=== PATIENT | male | born 1945 | race Caucasian/White ===

== ENCOUNTER 2016-11-07 10:36 | Day surgery (SDC) | payer MEDICARE, OTHER ==
--- NOTE | 2016-11-06 10:29 | MH ---
cc: LUPE MELO M.D. DATE OF ADMISSION: 11/07/2016 ADMITTING DIAGNOSIS: The patient is a 71-year-old white male with a history of multiple medical problems including paroxysmal atrial fibrillation, paroxysmal ventricular tachycardia, and diabetes who is now admitted for AICD generator replacement. His AICD battery was found to be nearing end-of-life on a routine check. Clinically he has been doing fairly well denying any chest pain, shortness of breath, dizziness, syncope, near-syncope, palpitations, pedal edema. PAST MEDICAL HISTORY: 1. History of paroxysmal ventricular tachycardia. The patient was admitted 01/15/2010 for multiple syncopal episodes and a 24 beat run of ventricular tachycardia was noted on hospital monitoring. Because his electrophysiology study was positive for inducible ventricular tachycardia 05/25/2010, he underwent Medtronic AICD implant. 2. Paroxysmal atrial tachycardia. 3. Paroxysmal atrial fibrillation. 4. Hypertension 5. Hyperlipidemia. 6. Diabetes. 7. History of cardiac catheterization 05/25/2010 showing normal coronary arteries. CARDIAC MEDICATIONS AT HOME: 1. Lasix 40 milligrams twice a day. 2. Lipitor 80 milligrams at bedtime. 3. Metoprolol tartrate 50 milligrams twice a day. 4. Xarelto 20 milligrams daily. ALLERGIES: CONTRAST DYE. FAMILY HISTORY: Noncontributory. SOCIAL HISTORY: The patient denies any history of alcohol or tobacco abuse. REVIEW OF SYSTEMS: Review of systems as in the history of present illness otherwise negative or noncontributory. PHYSICAL EXAMINATION: VITAL SIGNS: On physical examination, his blood pressure 100/68 with a pulse of 50, respirations 15. GENERAL: In general, he is a well-developed, well-nourished white male in no acute distress. HEAD, EYES, EARS, NOSE, THROAT: On HEENT examination, jugular venous pressure is normal. Carotid pulses are 2+ bilaterally and without bruits. CHEST: Examination of the chest reveals clear lung bourne. CARDIAC: On cardiac examination, he has a regular rhythm and rate without S3, S4 or murmur. ABDOMEN: On abdominal examination, he has a soft, obese, nontender abdomen. Bowel sounds are present. There is no definite hepatosplenomegaly. EXTREMITIES: Examination of extremities reveals no clubbing, cyanosis or edema. IMPRESSION: AICD battery nearing end-of-life in this 71-year-old white male with a history of paroxysmal ventricular tachycardia status post AICD implant 2009, history of paroxysmal atrial fibrillation, diabetes, hypertension, hyperlipidemia. The patient has been recommended AICD generator replacement and AICD defibrillation threshold retesting. The nature of these procedures and potential risks have been outlined. He agrees to proceed. PLAN: AICD generator replacement and AICD defibrillation threshold testing on 11/07/2016, holding Xarelto two days in advance of the procedure. MD MURIEL Lira/JACKELYN /4:31 PM /10:29 AM ALFON[facility]
[~2016-11-07] VITALS: Ht 182.9 cm; Wt 134.9 kg
[~2016-11-07 10:36] MED LIST: ALLO100T PO; ALPR-138 PO; FURO1TAB93 PO; GLYB1TAB51 PO; HYDR-3533 PO; KCL20 PO; LIPI80TA16 PO; METO25 PO; PREG25 PO; RANI150T PO; RIVA20 PO; SARA10TA PO
[2016-11-07 11:17] VITALS: BP 167/80; PULSE 53; RESP 16; TEMP 98.3; O2SAT 95
[2016-11-07] MEDS ORDERED: HYDR-3534 PO (11:19)
[2016-11-07] MEDS ORDERED: LIPI80TA PO (11:19)
[2016-11-07] MEDS ORDERED: ZANT150T2 PO (11:19)
[2016-11-07] MEDS ORDERED: METO50TA PO (11:19)
[2016-11-07] MEDS ORDERED: FURO1TAB61 PO (11:19)
[2016-11-07] MEDS ORDERED: XARE20TA PO (11:19)
[2016-11-07] MEDS ORDERED: ALPR.25 PO (11:19)
[2016-11-07] MEDS ORDERED: GLYB5TAB3 PO (11:19)
[2016-11-07] MEDS ORDERED: ALLO300T2 PO (11:19)
[2016-11-07] MEDS ORDERED: LYRI200C PO (11:19)
[2016-11-07] MEDS ORDERED: FLUO-1 PO (11:19)
[2016-11-07] MEDS ORDERED: VANCOMYCIN 1000 MG/NS 250 ML IV SCH ×2 (11:30)
[2016-11-07] MEDS ORDERED: LACTATED RINGER'S 1000 ML IV SCH (11:30)
[2016-11-07] MEDS ORDERED: CHLORHEXIDINE GLUCONATE 2 % 1 PACK (2 CLOTHS) TOP SCH (11:30)
[2016-11-07] MEDS ORDERED: ceFAZolin 2 GM PREMIX 50 ML IV SCH (11:30)
[2016-11-07] MEDS ORDERED: METOPROLOL TARTRATE 25 MG TAB PO PRN (11:30)
[2016-11-07] MEDS ORDERED: MUPIROCIN 2% OINT 1 APPLIC/GM SYR NASAL SCH (11:30)
[2016-11-07] MEDS ORDERED: NO Heparin, Lovenox, Coumadin at least 12 hours prior to procedure. XX PRN (11:30)
[2016-11-07] MEDS ORDERED: INSULIN HUMAN REGULAR 1,000 UNITS/10 ML VIAL SQ PRN (11:30)
[2016-11-07] MEDS ORDERED: NS 1000 ML IV SCH (11:30)
[2016-11-07] MEDS ORDERED: SODIUM CHLORID 0.9% 500 ML IV SCH (11:30)
[2016-11-07 11:51] LABS: AUTOMATED NEUTROPHIL # 4.9 TH/MM3 (1.8-7.7); BASOPHIL % 0.6 % (0.0-2.0); EOSINOPHIL # 0.2 TH/MM3 (0-0.4); HEMATOCRIT 48.2 % (39.0-51.0); HEMO FLAGS DIFF FINAL; LYMPH % 25.9 % (9.0-44.0); MEAN CORPUSCULAR HEMOGLOBIN 30.4 PG (27.0-34.0); MEAN CORPUSCULAR HGB CONC 33.8 % (32.0-36.0); MONO % 9.7 % (0.0-8.0); NEUT % 61.8 % (16.0-70.0); PLATELET COUNT 210 TH/MM3 (150-450); RED BLOOD COUNT 5.36 MIL/MM3 (4.50-5.90); RED CELL DISTRIBUTION WIDTH 15.5 % (11.6-17.2); WHITE BLOOD COUNT 7.9 TH/MM3 (4.0-11.0)
[2016-11-07 12:41] LABS: APTT (PATIENT) 31.3 SEC (24.3-30.1); INTERNATIONAL NORMALIZED RATIO 1.1 RATIO
[2016-11-07 13:04] LABS: BICARBONATE 29.3 MEQ/L (21.0-32.0); POTASSIUM 3.6 MEQ/L (3.5-5.1)
[2016-11-07] MEDS ORDERED: LIDOCAINE HCL 2% 50 ML VIAL ONE (14:31)
[2016-11-07] MEDS ORDERED: MIDAZOLAM HCL 2 MG/2 ML VIAL ONE (14:34)
[2016-11-07] MEDS ORDERED: ACETAMINOPHEN 325 MG TAB PO PRN (15:30)
[2016-11-07] MEDS ORDERED: LEVA500T PO (15:31)
[2016-11-07] MEDS ORDERED: FUROSEMIDE 80 MG TAB PO SCH (17:16)
[2016-11-07] MEDS ORDERED: METOPROLOL TARTRATE 50 MG TAB PO SCH (18:00)
--- NOTE | 2016-11-07 23:20 | MP ---
cc: LUPE MELO MD DATE OF SURGERY 11/07/16 PROCEDURE AICD generator replacement, AICD defibrillation threshold testing. OPERATIVE NOTE The patient was brought to the operating suite in a fasting state after having signed informed consent. The left upper chest was prepped and draped as per policy and anesthetized with 1% lidocaine. A transverse incision was made over the preexisting generator and, using blunt dissection, the generator was freed from the subcutaneous pocket. The leads were disconnected and then reconnected to the new generator which is a Medtronic Evera device, Of note, the atrial lead on fluoroscopy is pointing downward suggesting dislodgement. The patient has been in the VVI mode chronically. The leads and the generator were placed back into the subcutaneous pocket which was closed using 3-0 Vicryl interrupted stitches in three layers to close the subcutaneous tissue and then 4-0 Monocryl running stitch to close the subcuticular tissue. Overlapping Steri-Strips and a dressing were applied. Testing of the device was also performed. Ventricular fibrillation was induced. The patient was successfully rescued with a 25 joule shock after a charge time of 5.8 seconds at a shock impedance of 76 ohms. There were no apparent immediate complications. The patient tolerated the procedure well. CONCLUSION 1. Status post successful AICD generator replacement using a Medtronic Evera AICD generator. 2. Status post successful AICD defibrillation threshold testing. MD MURIEL Lira/ /3:28 PM /11:14 PM [facility]
--- NOTE | 2016-11-08 11:37 | EKG ---
Date Performed: 11/07/2016 Time Performed: 11:27:40 PTAGE: 71 years EKG: Sinus rhythm with 1st degree A-V block Right bundle branch block Inferior infarct - age undetermined Abnormal ECG PREVIOUS TRACING : 04/02/2016 13.24 DOCTOR: Arvin Reyes Interpretating Date/Time 11/08/2016 11:35:37
== END 2016-11-07 18:03 | disposition home or self-care (01) ==
LOC: HDOC 10:36 → HDIC 10:36 → HDOC 18:03
PROVIDERS: ATTEND Internal Medicine Cardiovascular Disease
DX: Z45.02 Encounter for adjustment and management of automatic implantable cardiac defibrillator (principal); I48.0 Paroxysmal atrial fibrillation; I47.2 Ventricular tachycardia; I10 Essential (primary) hypertension; E11.59 Type 2 diabetes mellitus with other circulatory complications; E78.5 Hyperlipidemia, unspecified; Z79.01 Long term (current) use of anticoagulants
CPT/HCPCS: 00530; 33263; 80048; 85025; 85610; 85730; 93005; C1721; J2250; J3010

== ENCOUNTER 2018-07-12 15:56 | Inpatient (IN) ==
[2018-07-12] MEDS ORDERED: Atropine Inj 1 MG/10 ML Syringe IV.PUSH ONE ×2 (16:07→17:05)
[2018-07-12 16:25] LABS: Baso % (Auto) 0.4 % (0.0-2.0); Eos # (Auto) 0.2 th/mm3 (0.0-0.4); Eos % (Auto) 2.2 % (0.0-4.0); Hematocrit 43.5 % (39.0-51.0); Hemoglobin 14.8 gm/dL (13.0-17.0); Lymph # (Auto) 1.3 th/mm3 (1.0-4.8); Lymph % (Auto) 17.7 % (9.0-44.0); Mean Corpuscular HGB Conc 34.1 % (32.0-36.0); Mean Corpuscular Hemoglobin 33.8 pg (27.0-34.0); Mean Corpuscular Volume 99.2 fL (80.0-100.0); Mean Platelet Volume 7.1 fL (7.0-11.0); Mono # (Auto) 0.6 th/mm3 (0.0-0.9); Mono % (Auto) 8.5 % (0.0-8.0); Neut # (Auto) 5.1 th/mm3 (1.8-7.7); Neut % (Auto) 71.2 % (16.0-70.0); Platelet Count 191 th/mm3 (150-450); Red Blood Count 4.39 mil/mm3 (4.50-5.90); Red Cell Distribution Width 14.9 % (11.6-17.2); White Blood Count 7.1 th/mm3 (4.0-11.0)
--- NOTE | 2018-07-12 16:27 | XR ---
EXAM DATE: 07/12/2018 4:23 PM EDT AGE/SEX: 73 years / Male INDICATIONS: Lightheaded. CLINICAL DATA: This is the patient's initial encounter. Patient reports that signs and symptoms have been present for 1 day and indicates a pain score of 0/10. MEDICAL/SURGICAL HISTORY: Hypercholesterolemia. Myocardial infarction. Gastroesophageal reflux disease. A-Fib. Hypertension. Diverticulitis. Esophageal rupture. Renal failure. Scoliosis. Diabetes. Pacemaker. Tonsillectomy. Appendectomy. Umbilical hernia repair. Eye surgery. Oral surgery. Cardiac cath. Blood transfusion. COMPARISON: No prior exams available for comparison. FINDINGS: A single AP view of the chest demonstrates the lungs to be symmetrically aerated without evidence of mass, infiltrate or effusion. The cardiomediastinal contours are unremarkable. Osseous structures a re intact. Left subclavian bipolar pacer. Some crowding of the bronchovascular markings with decrease d lung volumes CONCLUSION: Left subclavian bipolar pacer. Some prominence of lung markings due to poor inspiratory effort Electronically signed by: Arvin Brown MD 07/12/2018 4:25 PM EDT
[2018-07-12 16:54] LABS: Anion Gap 7 meq/L (5-15); Aspartate Aminotransferase 19 U/L (15-37); Blood Urea Nitrogen 14 mg/dL (7-18); Calcium 8.5 mg/dL (8.5-10.1); Carbon Dioxide 27.9 meq/L (21.0-32.0); Chloride 104 meq/L (98-107); Glomerular Filtration Rate 67 mL/min (>89); Glucose,Random 91 mg/dL (74-106); Potassium 3.9 meq/L (3.5-5.1); Sodium 139 meq/L (136-145)
[2018-07-12 16:55] LABS: Alanine Aminotransferase 21 U/L (12-78)
[2018-07-12 16:59] LABS: Alkaline Phosphatase 129 U/L (45-117); Troponin I 0.03 ng/mL (0.02-0.05)
[2018-07-12] MEDS ORDERED: Sodium Chlor 0.9% Inj 500 ML IV.SIG SCH (17:00)
[2018-07-12] MEDS ORDERED: Naloxone Inj 0.4 MG/ML Vial IV.PUSH ONE (17:23)
[2018-07-12] MEDS ORDERED: DOPamine 800 MG/500 ML Premix 800 MG/500 ML PLAST..BAG IV.CONT PRN (17:31)
[2018-07-12] MEDS ORDERED: DOPamine Inj 800 MG in Dextrose 5% in Water Inj 480 ML IV.CONT PRN ×2 (18:00)
[2018-07-12] MEDS ORDERED: Acetaminophen 325 MG Tablet PO PRN (18:21)
[2018-07-12] MEDS ORDERED: Bisacodyl 10 MG Supp RECTAL PRN (18:21)
--- NOTE | 2018-07-12 18:31 | P.HPCC ---
History of Present Illness Service: critical care medicine Primary Care Physician: UNKNOWN Chief Complaint: Malfunctioning pacemaker/bradycardia History of Present Illness: This is a 73-year-old male. Date of admission 07/12/2008. Past medical history includes congestive heart failure ejection fraction 50%, pulmonary retention with a, chronic kidney disease stage II, hypertension hyperlipidemia diabetes mellitus, depression, spinal stenosis history of V. tach status post AICD 2017. Patient presents to [facility] ED from physician's office for pain management with symptomatic bradycardia/syncope. Per report, he is noted to have a heart rate in the 40s with a systolic blood pressure in the 60s. Initially, patient did not want to come the ED was monitored but still remained hypotensive and bradycardic. EVAC was called, patient received 1 mg atropine which improved heart rate and blood pressure. Patient received glucagon for possible beta-wendy toxicity. Patient was externally paced. Cardiology was consulted Dr. Osei who recommend interrogation of pacemaker and start on low-dose dopamine. Pacemaker is currently malfunctioning.Patient is aware currently on 3 mcg/kg/min of dopamine and perfusing well. Inpatient Certification: I certify that the inpatient services were ordered in accordance with Medicare regulations governing the order. This includes certification that hospital inpatient services are reasonable and necessary and in the case of services not specified as inpatient-only under 42 CFR 419.22(n), that they are appropriately provided as inpatient services in accordance to with the 2-midnight benchmark under 43 CFR 412.3(e) Estimated Total Length of Stay (Days): 5 Plans for Post Hospital Care: Not yet determined Review of Systems Constitutional: Denies anorexia, Denies body ache(s), Denies chills Eyes: Denies blind spots, Denies blurry vision Ears, Nose, Mouth, and Throat: Denies abnormal hearing, Denies poor balance Cardiovascular: Denies chest pain, Denies chest pain at rest, Denies shortness of breath with activity, Denies shortness of breath when lying down Respiratory: Denies shortness of breath with activity Gastrointestinal: Denies abdominal pain, Denies loose stools Genitourinary: Denies decreased urination, Denies urinary frequency Musculoskeletal: Denies abnormal walking, Denies back pain, Denies neck pain Skin/Breast: Denies acne, Denies breast lump, Denies stretch portillo, Denies yellowing of the skin Neurologic: Denies abnormal hearing, Denies restless legs Psychiatric: Denies anxiety, Denies panic attacks Endocrine: Denies cold intolerance, Denies excessive sweating Hematologic/Lymphatic: Denies easy bleeding Allergic/Immunologic: Denies GI upset with certain foods PMFSH - History History Provided By: Patient - Medical History Medical History: Medical History (Last Reviewed 07/12/18 @ 20:16 by Laina Kim MD) Anxiety Chronic back pain Diabetes HBP (high blood pressure) Pacemaker - Surgical History Surgical History: Surgical History (Last Reviewed 07/12/18 @ 20:16 by Laina Kim MD) H/O hernia repair - Family History Family History: Family History (Last Updated 07/12/18 @ 21:57 by Panda Gardiner MD) Other Family history non-contributory - Tobacco History Second Hand Smoke Exposure: No Tobacco Use In Past 30 Days: No Smoking Status: Never smoker - Alcohol History How Often Do You Have a Drink Containing Alcohol: Never - Substance Use History Substance History: No History of Abuse - Travel History History of Recent Travel: No Recent Travel in the [place] Within the Last 8 Weeks: No Recent Travel Out of the Country Within the Last 8 Weeks: No - Immunization History Tetanus Immunization: >5 Years Medications and Allergies Active Medications: Active Medications Acetaminophen (Tylenol) 650 mg PO Q6H PRN PRN Reason: PAIN 1-10 AND/OR FEVER >101F Hydrocodone Bitart/Acetaminophen (Ola 5/325) 1 tab PO Q4H PRN PRN Reason: PAIN SCALE 1 TO 5 Al Hydroxide/Mg Hydroxide (Milk Of Tej Liq) 30 ml PO Q12H PRN PRN Reason: Mild Constipation Albuterol (Albuterol Neb (Sameer)) 2.5 mg NEB Q2HR NEB PRN PRN Reason: SHORTNESS OF BREATH/WHEEZING Albuterol (Duoneb Neb (Prn)) 1 ampul NEB Q4HR NEB SAMEER Allopurinol (Zyloprim) 300 mg PO DAILY SAMEER Alprazolam (Xanax) 0.25 mg PO TID SAMEER Atorvastatin Calcium (Lipitor) 80 mg PO DAILY SAMEER Bisacodyl (Dulcolax Supp) 10 mg RECTAL DAILY PRN PRN Reason: SEVERE CONSITIPATION Chlorhexidine Gluconate (Chlorhexidine 2% Cloth) 3 pack TOPICAL DAILY@0400 [facility] Stop: 07/18/18 03:59 Chlorhexidine Gluconate (Chlorhexidine 2% Cloth) 3 pack TOPICAL DAILY@0400 PRN PRN Reason: Extra cloth needed Stop: 07/18/18 03:59 Dopamine HCl 800 mg/ Dextrose 500 mls @ 13.26 mls/hr IV.CONT TITRATE PRN; Protocol PRN Reason: PER PROTOCOL Last Admin: 07/12/18 18:05 Dose: 3 mcg/kg/min, 13.26 mls/hr Sodium Chloride (Ns Inj) 1,000 mls @ 84 mls/hr IV.CONT .[id number] SAMEER Lactulose (Lactulose Liq) 30 ml PO DAILY PRN PRN Reason: SEVERE CONSITIPATION Morphine Sulfate (Morphine Inj) 2 mg IV.PUSH Q2H PRN PRN Reason: PAIN SCALE 6 TO 10 Non-Formulary Medication (Pregabalin [Lyrica]) 200 mg PO BID SAMEER Non-Formulary Medication (Ranitidine Hcl [Zantac]) 150 mg PO BID SAMEER Ondansetron HCl (Zofran Inj) 4 mg IV.PUSH Q6H PRN PRN Reason: NAUSEA OR VOMITING Pantoprazole Sodium (Protonix Inj) 40 mg IV.PUSH DAILY [facility] Senna/Docusate Sodium (Loretta-Colace) 1 tab PO BID [facility] Sennosides (Senokot) 17.2 mg PO Q12H PRN PRN Reason: Moderate Constipation Sodium Chloride (Ns Flush) 2 ml IV.FLUSH PRN PRN PRN Reason: FLUSH AFTER USING IV ACCESS Last Admin: 07/12/18 17:38 Dose: 2 ml Sodium Chloride (Ns Flush) 2 ml IV.FLUSH BID [facility] Sodium Chloride (Ns Flush) 2 ml IV.FLUSH PRN PRN PRN Reason: FLUSH AFTER USING IV ACCESS Terbutaline Sulfate (Brethine Inj) 1 mg SQ ONCE PRN PRN Reason: Extravasation Last Admin: 07/12/18 17:38 Dose: 1 mg Tizanidine HCl (Zanaflex) 4 mg PO TID [facility] Allergies Allergy/AdvReac Type Severity Reaction Status Date / Time diatrizoate meglumine Allergy Severe RASH Verified 07/12/18 16:12 gadobenic acid Allergy Severe RASH Verified 07/12/18 16:12 gadodiamide Allergy Severe RASH Verified 07/12/18 16:10 gadoteridol Allergy Severe RASH Verified 07/12/18 16:10 Iodine and Iodide Containing Allergy Severe Hives, SOB Verified 07/12/18 16:10 Produc iodixanol Allergy Severe Hives Verified 07/12/18 16:10 iohexol Allergy Severe Hives Verified 07/12/18 16:10 Home Medications Medication Instructions Recorded Confirmed Type allopurinol 300 mg PO DAILY 07/12/18 07/12/18 History alprazolam 0.25 mg PO TID 07/12/18 07/12/18 History atorvastatin 80 mg PO DAILY 07/12/18 07/12/18 History dulaglutide [Trulicity] 1.5 mg SUBCUT QWEEK 07/12/18 07/12/18 History furosemide [Lasix] 40 mg PO BID 07/12/18 07/12/18 History glipizide 5 mg PO BID 07/12/18 07/12/18 History hydrocodone-acetaminophen 1 tab PO TID PRN 07/12/18 07/12/18 History metoprolol tartrate 50 mg PO BID 07/12/18 07/12/18 History potassium 99 mg PO DAILY 07/12/18 07/12/18 History pregabalin [Lyrica] 200 mg PO BID 07/12/18 07/12/18 History ranitidine HCl [Zantac] 150 mg PO BID 07/12/18 07/12/18 History rivaroxaban [Xarelto] 20 mg PO DAILY 07/12/18 07/12/18 History tizanidine 4 mg PO TID 07/12/18 07/12/18 History Results - Labs CBC & Chem 7: 07/12/18 16:20 07/12/18 16:20 Labs: Short CBC 07/12/18 Range/Units 16:20 WBC 7.1 (4.0-11.0) th/mm3 Hgb 14.8 (13.0-17.0) gm/dL Hct 43.5 (39.0-51.0) % Plt Count 191 (150-450) th/mm3 BMP 07/12/18 16:20 Sodium 139 Potassium 3.9 Chloride 104 Carbon Dioxide 27.9 BUN 14 Creatinine 1.08 Calcium 8.5 Cardiac Enzymes 07/12/18 Range/Units 16:20 Troponin I 0.03 (0.02-0.05) ng/mL Liver Function 07/12/18 Range/Units 16:20 Total Bilirubin 0.5 (0.2-1.0) mg/dL AST 19 (15-37) U/L ALT 21 (12-78) U/L Alkaline Phosphatase 129 H (45-117) U/L Albumin 3.0 L (3.4-5.0) g/dL - Imaging Impressions Chest X-Ray 07/12/18 16:07 CONCLUSION: Left subclavian bipolar pacer. Some prominence of lung markings due to poor inspiratory effort Exam Vital signs: Vital Signs 07/12/18 16:00 07/12/18 16:07 07/12/18 16:32 Temperature 97.8 F 97.9 F Pulse Rate 43 L 42 L 48 L Respiratory Rate 18 20 Blood Pressure 80/52 L 87/52 L Pulse Oximetry 98 97 97 07/12/18 16:52 07/12/18 17:00 07/12/18 17:13 Temperature 97.8 F Pulse Rate 41 L 43 L 43 L Respiratory Rate 16 18 16 Blood Pressure 74/46 L 78/40 L 84/43 L Pulse Oximetry 98 97 98 07/12/18 17:29 07/12/18 17:42 07/12/18 17:49 Temperature 97.8 F Pulse Rate 59 L 59 L 53 L Respiratory Rate 18 16 17 Blood Pressure 82/48 L 87/48 L 100/50 L Pulse Oximetry 98 98 98 07/12/18 18:05 Temperature Pulse Rate 58 L Respiratory Rate 20 Blood Pressure 109/53 L Pulse Oximetry 98 Intake & Output 07/11/18 07/12/18 07/12/18 18:59 06:59 18:59 Intake Total 500 / 500 Balance 500 / 500 Weight 117.934 kg Intake: IV 500 / 500 NS Inj 500 ML @ 1000 mls/hr IV. 500 / 500 SIG BOLUS [facility] Rx#:[id number] - Constitutional no acute distress - Routine HEENT Exam Head: Present: normocephalic, atraumatic Eye: Present: EOMI, PERRL. Absent: normal accommodation ENT: Present: mucous membranes moist - Routine Neck Exam Present: supple, full ROM - Routine Chest/Breast/Axilla Exam Chest wall: Absent: tenderness Breast: Absent: tenderness Axillae: Absent: lymphadenopathy - Routine Cardiovascular Exam Present: S1, S2, bradycardia, irregular rhythm. Absent: murmur - Routine Abdominal Exam Present: soft, normoactive bowel sounds - Routine Extremities Exam Present: edema. Absent: cyanosis, clubbing - Routine Skin Exam Present: intact - Routine Neurological Exam Present: alert, oriented X3, CN II-XII intact. Absent: sensory deficit, motor deficit Septic Shock Reassessment Septic shock perfusion: reassessment completed Caprini VTE Risk Assessment Caprini VTE Risk Assessment: Moderate/High Risk (score >= 2) Caprini Risk Assessment Model: Point Value = 1 Point Value = 2 Point Value = 3 Point Value = 5 Age 41-60 Minor surgery BMI > 25 kg/m2 Swollen legs Varicose veins or History of unexplained or recurrent spontaneous Oral contraceptives or hormone replacement Sepsis (< 1 month) Serious lung disease, including pneumonia (< 1 month) Abnormal pulmonary function Acute myocardial infarction Congestive heart failure (< 1 month) History of inflammatory bowel disease Medical patient at bed rest Age 61-74 Arthroscopic surgery Major open surgery (> 45 min) Laparoscopic surgery (> 45 min) Malignancy Confined to bed (> 72 hours) Immobilizing plaster cast Central venous access Age >= 75 History of VTE Family history of VTE Factor V Leiden Prothrombin [id number] Lupus anticoagulant Anticardiolipin antibodies Elevated serum homocysteine Heparin-induced thrombocytopenia Other congenital or acquired thrombophilia Stroke (< 1 month) Elective arthroplasty Hip, pelvis, or leg fracture Acute spinal cord injury (< 1 month) Prophylaxis Regimen: Total Risk Factor Score Risk Level Prophylaxis Regimen 0-1 Low Early ambulation 2 Moderate Order ONE of the following: *Sequential Compression Device (SCD) *Heparin 5000 units SQ BID 3-4 Higher Order ONE of the following medications: *Heparin 5000 units SQ TID *Enoxaparin/Lovenox 40 mg SQ daily (WT < 150 kg, CrCl > 30 mL/min) *Enoxaparin/Lovenox 30 mg SQ daily (WT < 150 kg, CrCl > 10-29 mL/min) *Enoxaparin/Lovenox 30 mg SQ BID (WT < 150 kg, CrCl > 30 mL/min) AND/OR *Sequential Compression Device (SCD) 5 or more Highest Order ONE of the following medications: *Heparin 5000 units SQ TID (Preferred with Epidurals) *Enoxaparin/Lovenox 40 mg SQ daily (WT < 150 kg, CrCl > 30 mL/min) *Enoxaparin/Lovenox 30 mg SQ daily (WT < 150 kg, CrCl > 10-29 mL/min) *Enoxaparin/Lovenox 30 mg SQ BID (WT < 150 kg, CrCl > 30 mL/min) AND *Sequential Compression Device (SCD) Assessment and Plan - Assessment and Plan Plan: Neuro/Psych: Depression/anxiety Chronic pain syndrome Chronic benzodiazepine use Continue Xanax 0.25 mg 3 times daily Continue finasteride 4 mg 3 times daily Resume pregabalin 200 mg twice daily for neuropathy CV: Malfunctioning pacemaker Essential hypertension Hyperlipidemia History of V. 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 Dr. Osei contacted by ED. Recommended dopamine for heart rate control overnight. He said he was going to place pacemaker if needed Interrogate pacemaker number nonfunctioning paced. Medtronic. Check troponin. Cycle Replace electrolytes potassium greater than 4 magnesium greater than 2 Restart atorvastatin 80 mg daily/home again for dyslipidemia Resume furosemide 40 mg twice daily for congestive heart failure Hold metoprolol 50 mg twice daily Resp: Nasal cannula to maintain saturations greater than equal to 92% Incentive spirometry while awake As needed albuterol aerosols every 2 hours. Dyspnea GI: N.p.o. except for medications Pantoprazole for GI prophylaxis on ranitidine 100 mg twice daily at home Docusate/senna 1 tablet twice daily for bowel regimen : Straight catheterization as needed Endo: Diabetes mellitus [id number] Gout Continue allopurinol 300 mg daily for gout Holding weekly home diabetic dulaglutone 1.5 mg subcu weekly and glipizide 5 mg twice daily Sliding scale insulin Accu-Cheks to maintain euglycemia every 6 hours aspart insulin Renal: Chronic kidney disease 2 Will hold IV fluids. Monitor Urine output Accurate I's note Heme: Chronic rivaroxaban use Resume rivaroxaban 20 mg daily. CBC within normal limits. ID: Monitor for signs and symptomatology of infection FEN: Replace electrolytes as clinically indicated MSK: spinal stenosis Elevated BMI Weight loss encouraged physical therapy evaluate and treat Access -Utilize peripheral IV. Central line if indicated Prophylaxis - -GI -Pantoprazole -DVT SCD/heparin subcu Level 3 admission
[2018-07-12] MEDS ORDERED: Potassium Phosphate Inj 30 MMOL in Sodium Chlor 0.9% Inj 250 ML IV.SIG PRN (18:46)
[2018-07-12] MEDS ORDERED: Magnesium Sulfate Inj 2 GM in Sodium Chlor 0.9% Inj 96 ML IV.SIG PRN (18:46)
[2018-07-12] MEDS ORDERED: Magnesium Oxide 400 MG Tablet PO PRN (18:46)
[2018-07-12] MEDS ORDERED: Magnesium Sulfate Inj 4 GM in Sodium Chlor 0.9% Inj 92 ML IV.SIG PRN (18:46)
[2018-07-12] MEDS ORDERED: Potassium Phosphate 500 MG Soluble Tablet PO PRN ×2 (18:46)
[2018-07-12] MEDS ORDERED: Potassium Chlor 20 mEq Premix 20 MEQ/100 ML PIGGYBACK IV.SIG PRN ×2 (18:46)
[2018-07-12] MEDS ORDERED: Sodium Phosphate Inj 30 MMOL in Sodium Chlor 0.9% Inj 250 ML IV.SIG PRN (18:46)
[2018-07-12] MEDS ORDERED: Potassium Chlor 40 mEq Premix 40 MEQ/100 ML PIGGYBACK IV.SIG PRN ×2 (18:46)
[2018-07-12] MEDS ORDERED: Potassium Chloride 25 MEQ Effervescent Tablet PO PRN (18:46)
[2018-07-12] MEDS ORDERED: Dextrose 50% in Water 50 ML Vial IV.PUSH PRN (18:47)
--- NOTE | 2018-07-12 20:15 | ED ---
HPI General Chief Complaint: Dizziness Stated Complaint: low blood pressure Time Seen by Provider: 07/12/18 15:58 Source: patient Mode of arrival: ambulatory Limitations: no limitations History of Present Illness HPI Narrative: Patient is a 73-year-old male with history of diabetes, hypertension, cardiac disease with an AICD, who presents with complaint of lightheadedness/dizziness. He states that he was at his pain management clinic appointment this morning and his blood pressure was found to be in the 60s with a heart rate in the 40s. He refused to come to the emergency department at that time and was watched for another hour. After that his blood pressure was in the 70s with his heart rate still in the 40s and [facility] was called. EMS reports that they gave him 1 mg of atropine after which his heart rate increased to the 50s and his blood pressure increased to the 90s. Patient complains of intermittent lightheadedness since then. He has not taken any extra pain medicine nor of his beta-blockers. He adamantly denies any head trauma, headache, numbness, weakness, changes in speech, changes in vision, chest pain, shortness of breath. MD complaint: Reports lightheadedness Onset (ago): hour(s) Timing: unsure Description: Reports lightheadedness History of similar episodes: No History of trauma: No Severity: moderate Relieving factors: nothing Exacerbating factors: nothing Associated symptoms: Reports denies other symptoms Related Data Home Medications Medication Instructions Recorded Confirmed allopurinol 300 mg PO DAILY 07/12/18 07/12/18 alprazolam 0.25 mg PO TID 07/12/18 07/12/18 atorvastatin 80 mg PO DAILY 07/12/18 07/12/18 dulaglutide [Trulicity] 1.5 mg SUBCUT QWEEK 07/12/18 07/12/18 furosemide [Lasix] 40 mg PO BID 07/12/18 07/12/18 glipizide 5 mg PO BID 07/12/18 07/12/18 hydrocodone-acetaminophen 1 tab PO TID PRN 07/12/18 07/12/18 metoprolol tartrate 50 mg PO BID 07/12/18 07/12/18 potassium 99 mg PO DAILY 07/12/18 07/12/18 pregabalin [Lyrica] 200 mg PO BID 07/12/18 07/12/18 ranitidine HCl [Zantac] 150 mg PO BID 07/12/18 07/12/18 rivaroxaban [Xarelto] 20 mg PO DAILY 07/12/18 07/12/18 tizanidine 4 mg PO TID 07/12/18 07/12/18 Allergies Allergy/AdvReac Type Severity Reaction Status Date / Time diatrizoate meglumine Allergy Severe RASH Verified 07/12/18 16:12 gadobenic acid Allergy Severe RASH Verified 07/12/18 16:12 gadodiamide Allergy Severe RASH Verified 07/12/18 16:10 gadoteridol Allergy Severe RASH Verified 07/12/18 16:10 Iodine and Iodide Containing Allergy Severe Hives, SOB Verified 07/12/18 16:10 Produc iodixanol Allergy Severe Hives Verified 07/12/18 16:10 iohexol Allergy Severe Hives Verified 07/12/18 16:10 Review of Systems ROS: all other systems reviewed are negative [facility] Medical History Medical History Anxiety (Acute) Chronic back pain (Acute) Diabetes (Acute) HBP (high blood pressure) (Acute) Pacemaker (Acute) Surgical History Surgical History H/O hernia repair (Acute) Social History Social History Substance History: No History of Abuse Second Hand Smoke Exposure: No Smoking Status: Never smoker How Often Do You Have a Drink Containing Alcohol: Never Recent Travel in [facility] within the Last 8 Weeks: No Recent Out of Country Travel within the Last 8 Weeks: No Immunization History Tetanus Immunization: >5 Years Exam Narrative Exam Narrative: GENERAL: Chronically ill-appearing male in no acute distress SKIN: Focused skin assessment warm/dry. No rashes. Multiple scars from previous surgeries. HEAD: Atraumatic. Normocephalic. EYES: Pupils equal and round. No scleral icterus. No injection or drainage. ENT: No nasal bleeding or discharge. Mucous membranes pink and moist. NECK: Trachea midline. No JVD. CARDIOVASCULAR: Bradycardic. No murmur appreciated. Intact peripheral pulses. RESPIRATORY: No accessory muscle use. Clear to auscultation. Breath sounds equal bilaterally. GASTROINTESTINAL: Abdomen soft, non-tender, nondistended. Hepatic and splenic margins not palpable. MUSCULOSKELETAL: No obvious deformities. No clubbing. No cyanosis. No edema. NEUROLOGICAL: Awake and alert. No obvious cranial nerve deficits. Motor within normal limits. Normal sensation. No visual field deficits. No ataxia or past pointing. Normal speech. PSYCHIATRIC: Appropriate mood and affect; insight and judgment normal. Course Initial Documented Vital Signs Temperature 97.8 F 07/12/18 16:00 Pulse Rate 43 L 07/12/18 16:00 Respiratory Rate 18 07/12/18 16:00 Blood Pressure 80/52 L 07/12/18 16:00 Pulse Oximetry 98 07/12/18 16:00 Last Documented Vital Signs Temperature 97.8 F 07/12/18 19:00 Pulse Rate 79 07/12/18 19:47 Respiratory Rate 14 07/12/18 19:47 Blood Pressure 112/52 L 07/12/18 19:47 Pulse Oximetry 97 07/12/18 19:00 Critical Care Time Critical Care Time: Yes Total Critical Care Time: 40 Attestation: Aggregate critical care time was 40 minutes. Time to perform other separately billable procedures was not included in the critical care time. My time did not include minutes spent treating any other patients simultaneously or on activities that did not directly contribute to the patient's treatment. The services I provided to this patient were to treat and/or prevent clinically significant deterioration that could result in: , disability. I provided critical care services requiring my management, as noted below: Chart data review, documentation time, medication orders and management, vital sign assessments/reviewing monitor data, ordering and reviewing lab tests, ordering and interpreting/reviewing x-rays and diagnostic studies, care of the patient and discussion of the patient with the admitting physicians. Medical Decision Making MDM Narrative Medical decision making narrative: Patient is a 73-year-old male who presents with complaint of lightheadedness. He was bradycardic and hypotensive on arrival. Here he was given 500 cc of fluid and atropine to which he temporarily responded. Bedside US after fluids did not show collapsibility of the IVC thus no more fluids were given. He then began to be slightly sleepy and was given Narcan with some response. He was then given glucagon to which she also responded well but eventually was transcutaneously paced which achieved electrical and mechanical capture. When his HR was increased to the 60s, he no longer had dizziness. I spoke extensively multiple times with Dr. Osei, priming powder premix blender on-call for Dr. Ramon who recommended he be started on dopamine and admitted to the ICU. Then spoke with Dr. Gardiner, entry level sales representative on-call , whom agreed to admission. Medical Screen Exam Complete: Yes Emergency Medical Condition: Yes Differential Diagnosis Differential Diagnosis: Differential diagnosis includes but is not limited to dysfunctioning pacemaker, medication overdose, electrolyte abnormality. Medical Records Medical records reviewed: Yes I reviewed the patient's medical records. Lab Data Lab results reviewed: Yes I reviewed the patient's lab results. Result diagrams: 07/12/18 16:20 07/12/18 16:20 Lab Results 07/12/18 07/12/18 Range/Units 16:20 16:20 WBC 7.1 (4.0-11.0) th/mm3 RBC 4.39 L (4.50-5.90) mil/mm3 Hgb 14.8 (13.0-17.0) gm/dL Hct 43.5 (39.0-51.0) % MCV 99.2 (80.0-100.0) fL MCH 33.8 (27.0-34.0) pg MCHC 34.1 (32.0-36.0) % RDW 14.9 (11.6-17.2) % Plt Count 191 (150-450) th/mm3 MPV 7.1 (7.0-11.0) fL Neut % (Auto) 71.2 H (16.0-70.0) % Lymph % (Auto) 17.7 (9.0-44.0) % [place] % (Auto) 8.5 H (0.0-8.0) % Eos % (Auto) 2.2 (0.0-4.0) % Baso % (Auto) 0.4 (0.0-2.0) % Neut # (Auto) 5.1 (1.8-7.7) th/mm3 Lymph # (Auto) 1.3 (1.0-4.8) th/mm3 [place] # (Auto) 0.6 (0.0-0.9) th/mm3 Eos # (Auto) 0.2 (0.0-0.4) th/mm3 Baso # (Auto) 0.0 (0.0-0.2) th/mm3 WBC Differential . Differential Comment Auto diff final Sodium 139 (136-145) meq/L Potassium 3.9 (3.5-5.1) meq/L Chloride 104 (98-107) meq/L Carbon Dioxide 27.9 (21.0-32.0) meq/L Anion Gap 7 (5-15) meq/L BUN 14 (7-18) mg/dL Creatinine 1.08 (0.60-1.30) mg/dL Estimated GFR 67 L (>89) mL/min Random Glucose 91 (74-106) mg/dL Calcium 8.5 (8.5-10.1) mg/dL Total Bilirubin 0.5 (0.2-1.0) mg/dL AST 19 (15-37) U/L ALT 21 (12-78) U/L Alkaline Phosphatase 129 H (45-117) U/L Troponin I 0.03 (0.02-0.05) ng/mL Total Protein 6.0 L (6.4-8.2) g/dL Albumin 3.0 L (3.4-5.0) g/dL Imaging Data Attestation: I personally reviewed and interpreted this imaging study as follows : Radiologist's impression: Chest X-Ray 07/12/18 16:07 CONCLUSION: Left subclavian bipolar pacer. Some prominence of lung markings due to poor inspiratory effort ECG Data EKG Prior to Arrival: No Attestation: I personally reviewed and interpreted this ECG as follows: ( Bradycardia that is intermittently ventricularly paced at a rate of 41 bpm. There are several beats that were not paced which appear to be complete heart block. No ST or T wave changes.) Discharge Plan Discharge Disposition Patient Disposition: 30 Still Patient Discharge Condition Condition: Serious Discharge Details Diagnosis: Bradycardia, Acute hypotension Physicians Team ED Provider: Laina Kim Primary Care Provider: UNKNOWN, Attending Provider: Panda Gardiner Other Providers: Tobias Osei Discharge Interventions Interventions: Vital Signs Last Done: 07/12/18 18:05 Status ED Status: Admitted Patient
--- NOTE | 2018-07-12 20:54 | CT ---
EXAM DATE: 07/12/2018 8:48 PM EDT AGE/SEX: 73 years / Male INDICATIONS: Dizziness. CLINICAL DATA: This is the patient's initial encounter. Patient reports that signs and symptoms have been present for 1 day and indicates a pain score of 0/10. MEDICAL/SURGICAL HISTORY: Hypertension. None. RADIATION DOSE: 47.94 CTDI (mGy) COMPARISON: No prior exams available for comparison. TECHNIQUE: CT of the head without contrast. Using automated exposure control and adjustment of the mA and/or kV according to patient size, radiation dose was kept as low as reasonably achievable to ob tain optimal diagnostic quality images. DICOM format image data is available electronically for revi ew and comparison. FINDINGS: Cerebrum: The ventricles are normal for age. No evidence of midline shift, mass lesion, hemorrhage or acute infarction. No extraaxial fluid collections are seen. Posterior Fossa: The cerebellum and brainstem are intact. The 4th ventricle is midline. The cerebe llopontine angle is unremarkable. Extracranial: The visualized portion of the orbits is intact. Skull: The calvaria is intact. No evidence of skull fracture. CONCLUSION: 1. No acute intracranial abnormalities. . Electronically signed by: Oneal Blancas MD 07/12/2018 8:53 PM EDT
[2018-07-12] MEDS ORDERED: Furosemide 40 MG Tablet PO SCH (21:00)
[2018-07-12] MEDS: Famotidine 20 MG Tablet PO SCH (21:51)
[2018-07-12] MEDS: Senna/Docusate Sodium 8.6/50 MG Tablet PO SCH (21:52)
[2018-07-12] MEDS ORDERED: Magnesium Sulfate Inj 2 GM in Sodium Chlor 0.9% Inj 96 ML IV.SIG ONE (22:08)
[2018-07-13] MEDS: Sod Chloride 0.9% Inj 1,000 ML IV.CONT SCH ×2 (00:12→07:44)
[2018-07-13] MEDS: Insulin NovoLOG Aspart Correctional Sugar Inj SQ SCH ×4 (02:21→18:34)
--- NOTE | 2018-07-13 02:26 | MB ---
cc: Tobias Osei DO DATE: 07/12/2018 REASON FOR CONSULTATION: Bradycardia, hypotension. HISTORY OF PRESENT ILLNESS: Ryley Merino is a pleasant 73-year-old male who sees my partner, Dr. Ramon, in the office and presented due to bradycardia and hypotension. He was seeing his pain management physician today and was noted to be bradycardic as well as hypotensive with a heart rate in the 40s and systolic blood pressure in the 70s. He was symptomatic from this with lightheadedness throughout the day and presyncopal episodes. He was given 1 mg of atropine by [facility], which improved his heart rate somewhat. I was called by the emergency room and asked that his pacemaker be interrogated. We also gave him Glucagon, which did help with his heart rate somewhat. Initially, I was called by the [employer] rep that pacemaker was malfunctioning, but there was some interference with the external pacemaker pads that were early external pacemaker pads attempting to pace him. I was called then afterwards by the [employer] rep and it appears that his pacemaker was functioning okay and so this was increased to 80 beats per minute to try to help with perfusion. I also asked that he be placed on a dopamine drip at a low dose to try to help with heart rates. In seeing him, he is currently hemodynamically stable with his heart rate of 80, being paced and his blood pressure at 110/60. His dopamine drip was a 3 mcg/kg per minute. The patient denies any chest pain or shortness of breath. PAST MEDICAL HISTORY: 1. History of ventricular tachycardia. 2. Anxiety. 3. Chronic back pain. 4. Diabetes. 5. Hypertension. PAST SURGICAL HISTORY: 1. Hernia repair. 2. AICD generator replacement (11/07/2017) with a [employer] Evera AICD generator. 3. Cardiac catheterization (05/25/2010), normal coronary arteries. ALLERGIES: DIATRIZOATE MEGLUMINE, GADOBENIC ACID, GADODIAMIDE, GADOTERIDOL, IODINE, IOHEXOL. MEDICATIONS: 1. Potassium daily. 2. Tizanidine 4 mg t.i.d. 3. Lyrica 200 mg b.i.d. 4. Hydrocodone/acetaminophen 5/325 mg t.i.d. as needed. 5. Lipitor 80 mg daily. 6. Lasix 40 mg b.i.d. 7. Metoprolol tartrate 50 mg b.i.d. 8. Trulicity 1.5 mg weekly. 9. Glipizide 5 mg b.i.d. 10. Xanax 0.25 mg t.i.d. 11. Xarelto 20 mg daily. 12. Ranitidine 150 mg b.i.d. 13. Allopurinol 300 mg daily. FAMILY HISTORY: Denies premature coronary artery disease or sudden cardiac within the family. SOCIAL HISTORY: Denies tobacco, alcohol or drug abuse. REVIEW OF SYSTEMS: Fourteen systems were reviewed including osteopathic. Pertinent positives and negatives above, otherwise negative. PHYSICAL EXAMINATION: VITAL SIGNS: Temperature 97.8, heart rate 80, blood pressure 111/59, respirations 24, pulse oximetry 97% on room air. GENERAL: The patient appears well, in no acute distress, alert, awake and oriented x3. HEENT: Extraocular muscles intact. Mucous membranes moist. NECK: Supple. No JVD at 45 degrees. No carotid bruits bilaterally. Carotid upstroke is brisk in nature. HEART: Regular rate and rhythm. Positive first and second heart sounds with no noted murmurs, gallops, or rub. LUNGS: Clear to auscultation bilaterally. No wheezes, rales or rhonchi. ABDOMEN: Soft, nontender, nondistended. No organomegaly noted. EXTREMITIES: Show no clubbing or cyanosis. There is 3-4+ pitting edema bilaterally with mild erythema. SKIN: Warm, dry and intact. OSTEOPATHIC: Mild lordosis. No kyphoscoliosis or paraspinal tender points. LABORATORY DATA: Hemoglobin 14.8, hematocrit 43.5, platelets 191. Potassium 3.9, BUN 14, creatinine 1.08. Troponin 0.03. Electrocardiogram (07/12/2018 at 1638 hours) V-paced with intermittent [place] beats noted. IMPRESSION: 1. Symptomatic bradycardia. 2. Hypotension. 3. Chronic pain. 4. History of hypertension. 5. History of ventricular tachycardia. 6. Automatic implantable cardioverter-defibrillator in place. 7. Diastolic congestive heart failure with previous ejection fraction of 55%. 8. Elevated body mass index. RECOMMENDATIONS: 1. Mr. Merino presented with symptomatic bradycardia as well as hypotension. 2. I am unsure of the possible cause of this at this time. His pacemaker seemed to be functioning fine and had a backup rate of 40 beats per minute. We have increased this to 80 to help with his overall perfusion at this time. 3. I would not prefer to pace him constantly, but if this continues, he may eventually need a biventricular ICD. 4. He is currently on a dopamine drip at 3 mcg/kg per minute. As he is perfusing better with his pacemaker set at 80 beats per minute, we will attempt to wean off the dopamine. 5. Most likely, he should not be this hypotensive from a heart rate of 40. Although it is a possibility this is the cause, other causes should be evaluated. 6. If problems with the pacemaker overnight, a transvenous temporary pacemaker will be placed. 7. Further recommendations will be made based on the hospital course. Thank you for allowing me to see Ryley Merino. If you have any questions, please do not hesitate to call. DO JUAN J Briceño/navya/karen , 01:17 AM , 01:31 AM
[2018-07-13] MEDS ORDERED: Chlorhexidine Gluconate 2% 1 Pack (2 Cloths) TOPICAL PRN (04:00)
[2018-07-13 05:07] LABS: Baso % (Auto) 0.3 % (0.0-2.0); Eos # (Auto) 0.1 th/mm3 (0.0-0.4); Eos % (Auto) 1.3 % (0.0-4.0); Hematocrit 48.8 % (39.0-51.0); Hemoglobin 16.9 gm/dL (13.0-17.0); Lymph # (Auto) 1.5 th/mm3 (1.0-4.8); Lymph % (Auto) 17.4 % (9.0-44.0); Mean Corpuscular HGB Conc 34.7 % (32.0-36.0); Mean Corpuscular Hemoglobin 33.6 pg (27.0-34.0); Mean Corpuscular Volume 96.7 fL (80.0-100.0); Mean Platelet Volume 7.2 fL (7.0-11.0); Mono # (Auto) 0.6 th/mm3 (0.0-0.9); Mono % (Auto) 6.9 % (0.0-8.0); Neut # (Auto) 6.4 th/mm3 (1.8-7.7); Neut % (Auto) 74.1 % (16.0-70.0); Platelet Count 203 th/mm3 (150-450); Red Blood Count 5.04 mil/mm3 (4.50-5.90); Red Cell Distribution Width 14.4 % (11.6-17.2); White Blood Count 8.7 th/mm3 (4.0-11.0)
[2018-07-13 05:11] LABS: INR 1.2 Ratio
[2018-07-13 05:43] LABS: Alanine Aminotransferase 24 U/L (12-78); Albumin 3.6 g/dL (3.4-5.0); Anion Gap 9 meq/L (5-15); Aspartate Aminotransferase 21 U/L (15-37); Blood Urea Nitrogen 10 mg/dL (7-18); Calcium 8.8 mg/dL (8.5-10.1); Carbon Dioxide 30.4 meq/L (21.0-32.0); Chloride 102 meq/L (98-107); Glomerular Filtration Rate 80 mL/min (>89); Glucose,Random 103 mg/dL (74-106); Magnesium 2.2 mg/dL (1.5-2.5); Phosphorus 2.4 mg/dL (2.5-4.9); Potassium 3.4 meq/L (3.5-5.1); Sodium 141 meq/L (136-145)
[2018-07-13 05:49] LABS: Alkaline Phosphatase 155 U/L (45-117); Thyroid Stimulating Hormone 0.713 uIU/mL (0.358-3.740); Total Protein 7.2 g/dL (6.4-8.2); Troponin I 0.03 ng/mL (0.02-0.05)
[2018-07-13] MEDS: Chlorhexidine Gluconate 2% 1 Pack (2 Cloths) TOPICAL SCH (07:45)
--- NOTE | 2018-07-13 07:54 | P.PNCC ---
Subjective Subjective Remarks/Hospital Course: This is a 73-year-old male. Date of admission 07/12/2008. Past medical history includes congestive heart failure ejection fraction 50%, pulmonary retention with a, chronic kidney disease stage II, hypertension hyperlipidemia diabetes mellitus, depression, spinal stenosis history of V. tach status post AICD 2017. Patient presents to [facility] ED from physician's office for pain management with symptomatic bradycardia/syncope. Per report, he is noted to have a heart rate in the 40s with a systolic blood pressure in the 60s. Initially, patient did not want to come the ED was monitored but still remained hypotensive and bradycardic. [facility] was called, patient received 1 mg atropine which improved heart rate and blood pressure. Patient received glucagon for possible beta-wendy toxicity. Patient was externally paced. Cardiology was consulted Dr. Osei who recommend interrogation of pacemaker and start on low-dose dopamine. Pacemaker is currently malfunctioning.Patient is aware currently on 3 mcg/kg/min of dopamine and perfusing well. 07/13 Patient is off Dopamine, awake and alert. Denies any SOB or dizziness. Afebrile. Objective Vital Signs / I&O: Vital Signs 07/12/18 16:00 07/12/18 16:07 07/12/18 16:32 Temperature 97.8 F 97.9 F Pulse Rate 43 L 42 L 48 L Respiratory Rate 18 20 Blood Pressure 80/52 L 87/52 L Pulse Oximetry 98 97 97 07/12/18 16:52 07/12/18 17:00 07/12/18 17:13 Temperature 97.8 F Pulse Rate 41 L 43 L 43 L Respiratory Rate 16 18 16 Blood Pressure 74/46 L 78/40 L 84/43 L Pulse Oximetry 98 97 98 07/12/18 17:29 07/12/18 17:42 07/12/18 17:49 Temperature 97.8 F Pulse Rate 59 L 59 L 53 L Respiratory Rate 18 16 17 Blood Pressure 82/48 L 87/48 L 100/50 L Pulse Oximetry 98 98 98 07/12/18 18:05 07/12/18 18:21 07/12/18 19:00 Temperature 97.8 F Pulse Rate 58 L 79 Respiratory Rate 20 24 Blood Pressure 109/53 L 111/59 L Pulse Oximetry 98 98 97 07/12/18 19:27 07/12/18 19:47 07/12/18 21:15 Temperature 97.7 F Pulse Rate 79 79 80 Respiratory Rate 14 14 20 Blood Pressure 94/52 L 112/52 L 158/85 H Pulse Oximetry 95 07/12/18 22:01 07/12/18 22:21 07/12/18 22:46 Temperature 97.7 F Pulse Rate 80 80 80 Respiratory Rate 16 20 18 Blood Pressure 158/85 H 181/97 H Pulse Oximetry 95 95 07/12/18 23:00 07/12/18 23:24 07/13/18 00:00 Temperature 98.0 F Pulse Rate 79 85 97 H Respiratory Rate 20 16 20 Blood Pressure 177/92 H 125/62 Pulse Oximetry 88 L 94 L 97 07/13/18 03:24 07/13/18 04:00 Temperature 97.7 F Pulse Rate 80 80 Respiratory Rate 16 18 Blood Pressure 158/84 H Pulse Oximetry 98 Intake & Output 07/12/18 07/13/18 07/13/18 18:59 06:59 18:59 Intake Total 500 / 500 Output Total 400 / 400 850 / 850 Balance 100 / 100 -850 / -850 Weight 117.934 kg 138 kg Intake: IV 500 / 500 NS Inj 500 ML @ 1000 mls/hr IV. 500 / 500 SIG BOLUS [facility] Rx#:[id number] Output: Urine 400 / 400 850 / 850 Other: # Voids 1 Weight On Admission 138 kg Result Diagrams: 07/13/18 04:14 07/13/18 04:14 Other Results: Laboratory Results - last 12 hr 07/12/18 07/13/18 07/13/18 16:20 00:36 04:14 WBC 8.7 RBC 5.04 Hgb 16.9 D Hct 48.8 MCV 96.7 MCH 33.6 MCHC 34.7 RDW 14.4 Plt Count 203 MPV 7.2 Neut % (Auto) 74.1 H Lymph % (Auto) 17.4 [place] % (Auto) 6.9 Eos % (Auto) 1.3 Baso % (Auto) 0.3 Neut # (Auto) 6.4 Lymph # (Auto) 1.5 [place] # (Auto) 0.6 Eos # (Auto) 0.1 Baso # (Auto) 0.0 WBC Differential . Differential Comment Auto diff final PT INR APTT Sodium Potassium Chloride Carbon Dioxide Anion Gap BUN Creatinine Estimated GFR POC Glucose 96 Random Glucose Calcium Phosphorus Magnesium 1.8 Total Bilirubin AST ALT Alkaline Phosphatase Troponin I Total Protein Albumin TSH 07/13/18 07/13/18 04:14 04:14 WBC RBC Hgb Hct MCV MCH MCHC RDW Plt Count MPV Neut % (Auto) Lymph % (Auto) [place] % (Auto) Eos % (Auto) Baso % (Auto) Neut # (Auto) Lymph # (Auto) [place] # (Auto) Eos # (Auto) Baso # (Auto) WBC Differential Differential Comment PT 12.0 H INR 1.2 APTT 36.0 H Sodium 141 Potassium 3.4 L Chloride 102 Carbon Dioxide 30.4 Anion Gap 9 BUN 10 Creatinine 0.93 Estimated GFR 80 L POC Glucose Random Glucose 103 Calcium 8.8 Phosphorus 2.4 L Magnesium 2.2 Total Bilirubin 0.8 AST 21 ALT 24 Alkaline Phosphatase 155 H Troponin I 0.03 Total Protein 7.2 D Albumin 3.6 D TSH 0.713 Imaging: Chest X-Ray 07/12/18 16:07 CONCLUSION: Left subclavian bipolar pacer. Some prominence of lung markings due to poor inspiratory effort Head CT 07/12/18 17:23 CONCLUSION: 1. No acute intracranial abnormalities. . Objective Remarks: GENERAL: Patient is 73yo lying in bed in [facility]. SKIN: Warm and dry. HEAD: Normocephalic. EYES: No scleral icterus. No injection or drainage. NECK: Supple, trachea midline. No JVD or lymphadenopathy. CARDIOVASCULAR: Regular rate and rhythm without murmurs, gallops, or rubs. RESPIRATORY: Breath sounds equal bilaterally. No accessory muscle use. GASTROINTESTINAL: Abdomen soft, non-tender, nondistended. MUSCULOSKELETAL: No cyanosis, or edema. Neuro: awake and alert Assessment and Plan - Assessment and Plan Plan: Neuro/Psych: Depression/anxiety Chronic pain syndrome Chronic benzodiazepine use Awake and alert Continue Xanax 0.25 mg 3 times daily Continue finasteride 4 mg 3 times daily pregabalin 200 mg twice daily for neuropathy CV: Malfunctioning pacemaker Essential hypertension Hyperlipidemia History of V. tach status post AICD 2017 Congestive heart failure ejection fraction 55% 2016 with moderate to severe pulmonary retention Dr. Ramon is his fire control officer. Dr. Osei contacted by ED. Recommended dopamine for heart rate control overnight. Now off Dopamine ( HR 80) For 2D echo Interrogate pacemaker. [employer]. Trop 0.03 x 2 sets Atorvastatin 80 mg daily/home again for dyslipidemia Metoprolol 50 mg twice daily on hold. Resp: Continue with oxygen keep sats> 92% Incentive spirometry while awake As needed albuterol aerosols every 2 hours. GI: Start PO cardiac diet On Pepcid 20mg BID for GI prophylaxis Docusate/senna 1 tablet twice daily for bowel regimen : Straight catheterization as needed Endo: Diabetes mellitus [id number] Gout Continue allopurinol 300 mg daily for gout Sliding scale insulin Accu-Cheks to maintain euglycemia every 6 hours aspart insulin Renal: Hypokalemia Hypophos Monitor renal function, electrolytes replacement per protocol. Will need K, Phos replacement today Heme: Chronic rivaroxaban use On rivaroxaban 20 mg daily. CBC within normal limits. Monitor CBC ID: Monitor for signs and symptomatology of infection MSK: spinal stenosis Elevated BMI Weight loss encouraged physical therapy evaluate and treat Access -Utilize peripheral IV. Prophylaxis - -GI -On Pepcid -DVT SCD/resume Xarelto 20mg daily Will sign off and transfer care to [facility] Level 2
[2018-07-13] MEDS: Famotidine 20 MG Tablet PO SCH ×2 (08:28→20:44)
[2018-07-13] MEDS: Allopurinol 300 MG Tablet PO SCH (08:29)
[2018-07-13] MEDS: ALPRAZolam 0.25 MG Tablet PO SCH ×3 (08:29→17:25)
[2018-07-13] MEDS: Senna/Docusate Sodium 8.6/50 MG Tablet PO SCH ×2 (08:29→20:44)
[2018-07-13] MEDS: Rivaroxaban 20 MG Tablet PO SCH (08:29)
[2018-07-13] MEDS ORDERED: Pantoprazole Inj 40 MG Vial IV.PUSH SCH (09:00)
--- NOTE | 2018-07-13 14:02 | ECHRPT ---
Indication: Coronary Atherosclerosis CONCLUSIONS Normal left ventricular size. Mild concentric left ventricular hypertrophy. The left ventricular systolic function is low normal with an estimated ejection fraction in the rang e of 50- 55%. The left atrial size is mildly dilated. Normal atrial septal thickness. Txbsi-qu-urrg mitral valve regurgitation. There is trace tricuspid valve regurgitation. The estimated pulmonary arterial pressure is 43 mmHg. BP: 100 / 54 HR: 80 Rhythm: MEASUREMENTS (Male / Female) Normal Values Technical Quality:Technically difficult study 2D ECHO LV Diastolic Diameter PLAX 5.1 cm 4.2 - 5.9 / 3.9 - 5.3 cm LV Systolic Diameter PLAX 3.7 cm IVS Diastolic Thickness 1.3 cm 0.6 - 1.0 / 0.6 - 0.9 cm LVPW Diastolic Thickness 1.3 cm 0.6 - 1.0 / 0.6 - 0.9 cm LV Relative Wall Thickness 0.5 RV Internal Dim ED PLAX 3.8 cm LVOT Diameter 2.1 cm Aortic Root Diameter 2.8 cm LA Systolic Diameter LX 4.2 cm 3.0 - 4.0 / 2.7 - 3.8 cm DOPPLER AV Peak Velocity 129.0 cm/s AV Peak Gradient 6.7 mmHg LVOT Peak Velocity 115.0 cm/s LVOT Peak Gradient 5.3 mmHg AV Area Cont Eq pk 3.1 cm Mitral E Point Velocity 67.1 cm/s Mitral A Point Velocity 79.5 cm/s Mitral E to A Ratio 0.8 LV E' Lateral Velocity 13.5 cm/s Mitral E to LV E' Lateral Ratio 5.0 LV E' Septal Velocity 15.7 cm/s Mitral E to LV E' Septal Ratio 4.3 TR Peak Velocity 285.0 cm/s TR Peak Gradient 32.5 mmHg Right Atrial Pressure 10.0 mmHg Pulmonary Artery Systolic Pressu 42.5 mmHg Right Ventricular Systolic Press 42.5 mmHg PV Peak Velocity 110.0 cm/s PV Peak Gradient 4.8 mmHg FINDINGS LEFT VENTRICLE Normal left ventricular size. Mild concentric left ventricular hypertrophy. The left ventricular systolic function is low normal with an estimated ejection fraction in the rang e of 50- 55%. RIGHT VENTRICLE Normal right ventricular size and systolic function. A pacemaker wire is noted. LEFT ATRIUM The left atrial size is mildly dilated. RIGHT ATRIUM The right atrial size is normal. ATRIAL SEPTUM Normal atrial septal thickness. AORTA The aortic root and proximal ascending aorta are normal in size on limited imaging. MITRAL VALVE Ulkfi-ce-exxh mitral valve regurgitation. AORTIC VALVE Trileaflet aortic valve. No aortic valve stenosis or regurgitation. TRICUSPID VALVE There is trace tricuspid valve regurgitation. The estimated pulmonary arterial pressure is 43 mmHg. PULMONARY VALVE No pulmonary valve regurgitation or stenosis. VESSELS The inferior vena cava is normal in size. PERICARDIUM No pericardial effusion. Adolfo Galindo MD (Electronically Signed) Final Date:13 July 2018 14:02
--- NOTE | 2018-07-13 15:03 | P.PNCA ---
Subjective Interval history: No events overnight Lethargic/drowsy But says he did not sleep last night Evaluated twice First this morning Then again with [employer] rep to change parameters on ICD Medications and Allergies Active Medications: Active Medications Acetaminophen (Tylenol) 650 mg PO Q6H PRN PRN Reason: PAIN 1-10 AND/OR FEVER >101F Hydrocodone Bitart/Acetaminophen ([place] 5/325) 1 tab PO Q4H PRN PRN Reason: PAIN SCALE 1 TO 5 Last Admin: 07/13/18 08:28 Dose: 1 tab Al Hydroxide/Mg Hydroxide (Milk Of Magnkristin Liq) 30 ml PO Q12H PRN PRN Reason: Mild Constipation Albuterol (Albuterol Neb (Prn)) 2.5 mg NEB Q2HR NEB PRN PRN Reason: SHORTNESS OF BREATH/WHEEZING Albuterol (Duoneb Neb (Sameer)) 1 ampul NEB Q4HR NEB [facility] Last Admin: 07/13/18 10:46 Dose: Not Given Allopurinol (Zyloprim) 300 mg PO DAILY [facility] Last Admin: 07/13/18 08:29 Dose: 300 mg Alprazolam (Xanax) 0.25 mg PO TID [facility] Last Admin: 07/13/18 13:02 Dose: 0.25 mg Atorvastatin Calcium (Lipitor) 80 mg PO DAILY [facility] Last Admin: 07/13/18 08:29 Dose: 80 mg Bisacodyl (Dulcolax Supp) 10 mg RECTAL DAILY PRN PRN Reason: SEVERE CONSITIPATION Chlorhexidine Gluconate (Chlorhexidine 2% Cloth) 3 pack TOPICAL DAILY@0400 [facility] Stop: 07/18/18 03:59 Last Admin: 07/13/18 07:45 Dose: Not Given Chlorhexidine Gluconate (Chlorhexidine 2% Cloth) 3 pack TOPICAL DAILY@0400 PRN PRN Reason: Extra cloth needed Stop: 07/18/18 03:59 Dextrose (D50w Vial) 50 ml IV.PUSH UNSCH PRN PRN Reason: PER HYPOGLYCEMIA PROTOCOL Famotidine (Pepcid) 20 mg PO BID [facility] Last Admin: 07/13/18 08:28 Dose: 20 mg Glucagon (Glucagon Inj) 1 mg OTHER PRN PRN PRN Reason: for Hypoglycemia Protocol Dopamine HCl 800 mg/ Dextrose 500 mls @ 13.26 mls/hr IV.CONT TITRATE PRN; Protocol PRN Reason: PER PROTOCOL Last Admin: 07/12/18 18:05 Dose: 3 mcg/kg/min, 13.26 mls/hr Magnesium Sulfate 4 gm/ Sodium (Chloride) 100 mls @ 50 mls/hr IV.SIG UNSCH PRN PRN Reason: For Magnesium 0.9 - 1.1 mg/dL Magnesium Sulfate 2 gm/ Sodium (Chloride) 100 mls @ 50 mls/hr IV.SIG UNSCH PRN PRN Reason: For Magnesium 1.2 - 1.6 mg/dL Potassium Chloride (Kcl 40 Meq Premix Inj) 40 meq in 100 mls @ 25 mls/hr IV.SIG Q2H PRN PRN Reason: For Potassium 2.8 - 3.2 mEq/L Potassium Chloride (Kcl 20 Meq Premix Inj) 20 meq in 100 mls @ 50 mls/hr IV.SIG Q2H PRN PRN Reason: For Potassium 3.3 - 3.5 mEq/L Potassium Chloride (Kcl 20 Meq Premix Inj) 20 meq in 100 mls @ 50 mls/hr IV.SIG Q2H PRN PRN Reason: For Potassium 2.8 - 3.2 mEq/L Potassium Phosphate 30 mmol/ (Sodium Chloride) 260 mls @ 42 mls/hr IV.SIG UNSCH PRN PRN Reason: SEE LABEL COMMENTS Last Admin: 07/13/18 09:03 Dose: 42 mls/hr Sodium Phosphate 30 mmol/ (Sodium Chloride) 260 mls @ 42 mls/hr IV.SIG UNSCH PRN PRN Reason: For Phosphorus < 2.5 mg/dL Potassium Chloride (Kcl 40 Meq Premix Inj) 40 meq in 100 mls @ 25 mls/hr IV.SIG UNSCH PRN PRN Reason: For Potassium 3.3 - 3.5 mEq/L Insulin Aspart (Novolog Insulin Correctional Sugar Inj) 0 unit SQ Q6HR SAMEER; Protocol Last Admin: 07/13/18 13:02 Dose: 2 unit Lactulose (Lactulose Liq) 30 ml PO DAILY PRN PRN Reason: SEVERE CONSITIPATION Magnesium Oxide (Mag-Ox) 800 mg PO UNSCH PRN PRN Reason: For Magnesium 1.2 - 1.6 mg/dL Morphine Sulfate (Morphine Inj) 2 mg IV.PUSH Q2H PRN PRN Reason: PAIN SCALE 6 TO 10 Ondansetron HCl (Zofran Inj) 4 mg IV.PUSH Q6H PRN PRN Reason: NAUSEA OR VOMITING Potassium Bicarb/Potassium Chloride (K-Lyte Cl Eff) 50 meq PO UNSCH PRN PRN Reason: For Potassium 3.3 - 3.5 mEq/L Potassium Phosphate (K-Phos Original) 2,000 mg PO Q4H PRN PRN Reason: Phosphorus Less Than 2.5 mg/dL Potassium Phosphate (K-Phos Original) 2,000 mg PO UNSCH PRN PRN Reason: SEE LABEL COMMENTS Pregabalin (Lyrica) 200 mg PO BID [facility] Last Admin: 07/13/18 08:28 Dose: 200 mg Rivaroxaban (Xarelto) 20 mg PO DAILY [facility] Last Admin: 07/13/18 08:29 Dose: 20 mg Senna/Docusate Sodium (Loretta-Colace) 1 tab PO BID [facility] Last Admin: 07/13/18 08:29 Dose: 1 tab Sennosides (Senokot) 17.2 mg PO Q12H PRN PRN Reason: Moderate Constipation Sodium Chloride (Ns Flush) 2 ml IV.FLUSH PRN PRN PRN Reason: FLUSH AFTER USING IV ACCESS Last Admin: 07/12/18 17:38 Dose: 2 ml Sodium Chloride (Ns Flush) 2 ml IV.FLUSH BID [facility] Last Admin: 07/13/18 08:29 Dose: 2 ml Sodium Chloride (Ns Flush) 2 ml IV.FLUSH PRN PRN PRN Reason: FLUSH AFTER USING IV ACCESS Terbutaline Sulfate (Brethine Inj) 1 mg SQ ONCE PRN PRN Reason: Extravasation Last Admin: 07/12/18 17:38 Dose: 1 mg Tizanidine HCl (Zanaflex) 4 mg PO TID [facility] Last Admin: 07/13/18 13:02 Dose: 4 mg Allergies Allergy/AdvReac Type Severity Reaction Status Date / Time diatrizoate meglumine Allergy Severe RASH Verified 07/12/18 16:12 gadobenic acid Allergy Severe RASH Verified 07/12/18 16:12 gadodiamide Allergy Severe RASH Verified 07/12/18 16:10 gadoteridol Allergy Severe RASH Verified 07/12/18 16:10 Iodine and Iodide Containing Allergy Severe Hives, SOB Verified 07/12/18 16:10 Produc iodixanol Allergy Severe Hives Verified 07/12/18 16:10 iohexol Allergy Severe Hives Verified 07/12/18 16:10 Home Medications Medication Instructions Recorded Confirmed Type allopurinol 300 mg PO DAILY 07/12/18 07/12/18 History alprazolam 0.25 mg PO TID 07/12/18 07/12/18 History atorvastatin 80 mg PO DAILY 07/12/18 07/12/18 History dulaglutide [Trulicity] 1.5 mg SUBCUT QWEEK 07/12/18 07/12/18 History furosemide [Lasix] 40 mg PO BID 07/12/18 07/12/18 History glipizide 5 mg PO BID 07/12/18 07/12/18 History hydrocodone-acetaminophen 1 tab PO TID PRN 07/12/18 07/12/18 History metoprolol tartrate 50 mg PO BID 07/12/18 07/12/18 History potassium 99 mg PO DAILY 07/12/18 07/12/18 History pregabalin [Lyrica] 200 mg PO BID 07/12/18 07/12/18 History ranitidine HCl [Zantac] 150 mg PO BID 07/12/18 07/12/18 History rivaroxaban [Xarelto] 20 mg PO DAILY 07/12/18 07/12/18 History tizanidine 4 mg PO TID 07/12/18 07/12/18 History Physical Exam Vital signs: Vital Signs 07/12/18 16:00 07/12/18 16:07 07/12/18 16:32 Temperature 97.8 F 97.9 F Pulse Rate 43 L 42 L 48 L Respiratory Rate 18 20 Blood Pressure 80/52 L 87/52 L Pulse Oximetry 98 97 97 07/12/18 16:52 07/12/18 17:00 07/12/18 17:13 Temperature 97.8 F Pulse Rate 41 L 43 L 43 L Respiratory Rate 16 18 16 Blood Pressure 74/46 L 78/40 L 84/43 L Pulse Oximetry 98 97 98 07/12/18 17:29 07/12/18 17:42 07/12/18 17:49 Temperature 97.8 F Pulse Rate 59 L 59 L 53 L Respiratory Rate 18 16 17 Blood Pressure 82/48 L 87/48 L 100/50 L Pulse Oximetry 98 98 98 07/12/18 18:05 07/12/18 18:21 07/12/18 19:00 Temperature 97.8 F Pulse Rate 58 L 79 Respiratory Rate 20 24 Blood Pressure 109/53 L 111/59 L Pulse Oximetry 98 98 97 07/12/18 19:27 07/12/18 19:47 07/12/18 21:15 Temperature 97.7 F Pulse Rate 79 79 80 Respiratory Rate 14 14 20 Blood Pressure 94/52 L 112/52 L 158/85 H Pulse Oximetry 95 07/12/18 22:01 07/12/18 22:21 07/12/18 22:46 Temperature 97.7 F Pulse Rate 80 80 80 Respiratory Rate 16 20 18 Blood Pressure 158/85 H 181/97 H Pulse Oximetry 95 95 07/12/18 23:00 07/12/18 23:24 07/13/18 00:00 Temperature 98.0 F Pulse Rate 79 85 97 H Respiratory Rate 20 16 20 Blood Pressure 177/92 H 125/62 Pulse Oximetry 88 L 94 L 97 07/13/18 03:24 07/13/18 04:00 07/13/18 07:00 Temperature 97.7 F Pulse Rate 80 80 80 Respiratory Rate 16 18 15 Blood Pressure 158/84 H Pulse Oximetry 98 07/13/18 08:00 07/13/18 09:00 07/13/18 10:00 Temperature 98.0 F Pulse Rate 80 80 80 Respiratory Rate 15 14 Blood Pressure 164/88 H 77/51 L Pulse Oximetry 95 92 L 94 L 07/13/18 11:00 07/13/18 12:00 07/13/18 13:00 Temperature 97.9 F Pulse Rate 80 80 80 Respiratory Rate 33 H 20 15 Blood Pressure 97/55 L 100/54 L 119/61 Pulse Oximetry 100 94 L 97 07/13/18 14:39 Temperature Pulse Rate Respiratory Rate Blood Pressure Pulse Oximetry 98 Intake & Output 07/12/18 07/13/18 07/13/18 18:59 06:59 18:59 Intake Total 500 / 500 100 / 100 Output Total 400 / 400 1600 / 1600 250 / 250 Balance 100 / 100 -1600 / -1600 -150 / -150 Weight 117.934 kg 138 kg Intake: IV 500 / 500 100 / 100 Magnesium Sulfate Inj 2 GM In 100 / 100 NS Inj 96 ML @ 50 mls/hr IV.SIG ONCE ONE Rx#:[id number] NS Inj 500 ML @ 1000 mls/hr IV. 500 / 500 SIG BOLUS SAMEER Rx#:[id number] Output: Urine 400 / 400 1600 / 1600 250 / 250 Other: # Voids 1 Weight On Admission 138 kg Narrative: GENERAL: Lethargic, NAD SKIN: Warm and dry. HEAD: Atraumatic. Normocephalic. EYES: Pupils equal and round. No scleral icterus. No injection or drainage. ENT: No nasal bleeding or discharge. Mucous membranes pink and moist. NECK: Trachea midline. No JVD. CARDIOVASCULAR: Regular rate and rhythm. RESPIRATORY: No accessory muscle use. Clear to auscultation. Breath sounds equal bilaterally. GASTROINTESTINAL: Abdomen soft, non-tender, nondistended. Hepatic and splenic margins not palpable. MUSCULOSKELETAL: 3-4+ pitting edema NEUROLOGICAL: Lethargic. No obvious cranial nerve deficits. Motor grossly within normal limits. Five out of 5 muscle strength in the arms and legs. Normal speech. PSYCHIATRIC: Appropriate mood and affect; insight and judgment normal. Results 07/13/18 04:14 07/13/18 04:14 Cardiac Enzymes 07/12/18 07/13/18 Range/Units 16:20 04:14 AST 19 21 (15-37) U/L Troponin I 0.03 0.03 (0.02-0.05) ng/mL Coagulation 07/13/18 Range/Units 04:14 PT 12.0 H (9.8-11.6) sec APTT 36.0 H (23.4-31.7) sec CBC 07/12/18 07/13/18 Range/Units 16:20 04:14 WBC 7.1 8.7 (4.0-11.0) th/mm3 RBC 4.39 L 5.04 (4.50-5.90) mil/mm3 Hgb 14.8 16.9 D (13.0-17.0) gm/dL Hct 43.5 48.8 (39.0-51.0) % Plt Count 191 203 (150-450) th/mm3 Neut # (Auto) 5.1 6.4 (1.8-7.7) th/mm3 Lymph # (Auto) 1.3 1.5 (1.0-4.8) th/mm3 Runnels # (Auto) 0.6 0.6 (0.0-0.9) th/mm3 Eos # (Auto) 0.2 0.1 (0.0-0.4) th/mm3 Baso # (Auto) 0.0 0.0 (0.0-0.2) th/mm3 Comprehensive Metabolic Panel 07/12/18 07/13/18 Range/Units 16:20 04:14 Sodium 139 141 (136-145) meq/L Potassium 3.9 3.4 L (3.5-5.1) meq/L Chloride 104 102 (98-107) meq/L Carbon Dioxide 27.9 30.4 (21.0-32.0) meq/L BUN 14 10 (7-18) mg/dL Creatinine 1.08 0.93 (0.60-1.30) mg/dL Calcium 8.5 8.8 (8.5-10.1) mg/dL AST 19 21 (15-37) U/L ALT 21 24 (12-78) U/L Alkaline Phosphatase 129 H 155 H (45-117) U/L Total Protein 6.0 L 7.2 D (6.4-8.2) g/dL Albumin 3.0 L 3.6 D (3.4-5.0) g/dL Intake and Output 07/12/18 07/13/18 07/13/18 22:59 06:59 14:59 Intake Total 500 / 500 100 / 100 Output Total 1250 / 1250 750 / 750 250 / 250 Balance -750 / -750 -750 / -750 -150 / -150 Intake: IV 500 / 500 100 / 100 Magnesium Sulfate Inj 2 GM In 100 / 100 NS Inj 96 ML @ 50 mls/hr IV.SIG ONCE ONE Rx#:[id number] NS Inj 500 ML @ 1000 mls/hr IV. 500 / 500 SIG BOLUS SAMEER Rx#:[id number] Output: Urine 1250 / 1250 750 / 750 250 / 250 Other: # Voids 1 Weight 138 kg Weight On Admission 138 kg - Imaging and Cardiology Imaging: Impressions Chest X-Ray 07/12/18 16:07 CONCLUSION: Left subclavian bipolar pacer. Some prominence of lung markings due to poor inspiratory effort Head CT 07/12/18 17:23 CONCLUSION: 1. No acute intracranial abnormalities. . Assessment and Plan - Assessment (1) Bradycardia Code(s): R00.1 - Bradycardia, unspecified Status: Acute (2) Acute hypotension Code(s): I95.9 - Hypotension, unspecified Status: Acute - Plan 1) Symptomatic bradycardia ICD is working, has a previous atrial lead turned off due to not capturing Was still pacing 40% on VVI at 40bpm Rate set at 80 bpm to help with perfusion Attempted to set rate at 60 bpm to allow for atrial kick, senses atrial rhythm at 60, but blood pressure still low 2) Hypotension Unknown cause other than meds Blood pressure better this morning, then received Zanaflex and Xanax as scheduled and blood pressure 85/50 Echo showing no cause for hypotension Troponin negative 3) Will try to decrease pain/anxiety meds and see how he does 4) May need another atrial lead vs consideration of BiV if continues to pace at a high rate 5) Hold beta wendy therapy
[2018-07-13 20:54] LABS: Potassium 4.4 meq/L (3.5-5.1)
[2018-07-13] MEDS: Latanoprost 0.005% Opth Drops 2.5 ML Bottle EACH EYE SCH (21:03)
[2018-07-14] MEDS: Insulin NovoLOG Aspart Correctional Sugar Inj SQ SCH ×4 (00:33→17:40)
[2018-07-14] MEDS: Chlorhexidine Gluconate 2% 1 Pack (2 Cloths) TOPICAL SCH (03:56)
[2018-07-14 05:17] LABS: Baso % (Auto) 0.3 % (0.0-2.0); Eos # (Auto) 0.2 th/mm3 (0.0-0.4); Eos % (Auto) 2.3 % (0.0-4.0); Hematocrit 46.2 % (39.0-51.0); Hemoglobin 15.5 gm/dL (13.0-17.0); Lymph # (Auto) 1.5 th/mm3 (1.0-4.8); Lymph % (Auto) 21.4 % (9.0-44.0); Mean Corpuscular HGB Conc 33.6 % (32.0-36.0); Mean Corpuscular Volume 98.4 fL (80.0-100.0); Mean Platelet Volume 7.4 fL (7.0-11.0); Mono # (Auto) 0.5 th/mm3 (0.0-0.9); Platelet Count 188 th/mm3 (150-450); Red Cell Distribution Width 14.8 % (11.6-17.2); White Blood Count 7.2 th/mm3 (4.0-11.0)
[2018-07-14 05:43] LABS: Albumin 3.2 g/dL (3.4-5.0); Anion Gap 10 meq/L (5-15); Aspartate Aminotransferase 16 U/L (15-37); Blood Urea Nitrogen 12 mg/dL (7-18); Calcium 8.9 mg/dL (8.5-10.1); Carbon Dioxide 27.8 meq/L (21.0-32.0); Chloride 103 meq/L (98-107); Glomerular Filtration Rate 75 mL/min (>89); Glucose,Random 110 mg/dL (74-106); Magnesium 1.8 mg/dL (1.5-2.5); Potassium 3.7 meq/L (3.5-5.1); Sodium 141 meq/L (136-145)
[2018-07-14 05:46] LABS: Alanine Aminotransferase 19 U/L (12-78); Alkaline Phosphatase 135 U/L (45-117); Phosphorus 2.8 mg/dL (2.5-4.9); Total Protein 6.5 g/dL (6.4-8.2)
--- NOTE | 2018-07-14 07:58 | P.PNIM ---
Subjective Interval history: f/u; bradycardia in no acute distress. no chest pain, sob or dizziness. has constipation. d/w the RN and no acute issues over night. Physical Exam Vital signs: Vital Signs 07/13/18 09:00 07/13/18 10:00 07/13/18 11:00 Temperature Pulse Rate 80 80 80 Respiratory Rate 14 33 H Blood Pressure 77/51 L 97/55 L Pulse Oximetry 92 L 94 L 100 07/13/18 12:00 07/13/18 13:00 07/13/18 14:00 Temperature 97.9 F Pulse Rate 80 80 80 Respiratory Rate 20 15 18 Blood Pressure 100/54 L 119/61 Pulse Oximetry 94 L 97 96 07/13/18 14:03 07/13/18 14:11 07/13/18 14:13 Temperature Pulse Rate 80 80 80 Respiratory Rate 17 17 21 Blood Pressure 82/46 L 91/51 L 83/46 L Pulse Oximetry 96 94 L 94 L 07/13/18 14:16 07/13/18 14:39 07/13/18 15:00 Temperature Pulse Rate 59 L 80 Respiratory Rate 20 18 Blood Pressure 81/47 L 78/40 L Pulse Oximetry 94 L 98 96 07/13/18 15:06 07/13/18 15:32 07/13/18 16:00 Temperature 98 F Pulse Rate 80 80 80 Respiratory Rate 35 H 22 17 Blood Pressure 78/47 L Pulse Oximetry 94 L 97 07/13/18 16:01 07/13/18 17:00 07/13/18 18:00 Temperature Pulse Rate 80 80 Respiratory Rate 31 H 23 Blood Pressure 97/57 L 103/56 L 105/57 L Pulse Oximetry 97 98 07/13/18 19:00 07/13/18 20:00 07/13/18 20:22 Temperature 98.0 F Pulse Rate 80 80 80 Respiratory Rate 22 24 23 Blood Pressure 112/62 104/61 Pulse Oximetry 93 L 99 07/13/18 21:00 07/13/18 22:00 07/13/18 23:00 Temperature Pulse Rate 80 80 80 Respiratory Rate 20 29 H 22 Blood Pressure 124/59 L 132/63 131/69 Pulse Oximetry 99 96 100 07/13/18 23:39 07/14/18 00:00 07/14/18 01:14 EDT Temperature 98.3 F Pulse Rate 80 80 80 Respiratory Rate 20 22 20 Blood Pressure 130/62 122/75 Pulse Oximetry 99 96 07/14/18 02:00 07/14/18 03:00 07/14/18 03:01 Temperature Pulse Rate 80 80 100 H Respiratory Rate 22 24 18 Blood Pressure 173/77 H 171/82 H Pulse Oximetry 97 97 07/14/18 04:00 07/14/18 05:00 07/14/18 06:00 Temperature 97.0 F L Pulse Rate 80 80 80 Respiratory Rate 24 22 22 Blood Pressure 170/79 H 172/82 H 182/87 H Pulse Oximetry 96 96 96 Intake & Output 07/13/18 07/14/18 07/14/18 19:59 06:59 18:59 Intake Total Output Total Balance Intake: IV Intropin Inj 800 MG In D5W Inj 480 ML @ 3 MCG/KG/MIN 13.26 mls /hr IV.CONT TITRATE PRN Rx#: [id number] Magnesium Sulfate Inj 2 GM In NS Inj 96 ML @ 50 mls/hr IV.SIG ONCE ONE Rx#:[id number] Potassium Phosphate Inj 30 MMOL In NS Inj 250 ML @ 42 mls/hr IV.SIG UNSCH PRN Rx#:[id number] Oral Output: Urine Other: Date of Last Bowel Movement # Bowel Movements - Constitutional no acute distress - Routine Respiratory Exam Present: CTA bilaterally - Routine Cardiovascular Exam Present: RRR - Routine Abdominal Exam Present: soft - Routine Extremities Exam Comments: no pedal edema. - Routine Neurological Exam Present: alert, oriented X3 Results - Labs CBC & Chem 7: 07/14/18 04:07 07/14/18 04:07 Laboratory Results - last 24 hr 07/13/18 07/13/18 07/13/18 05:30 12:49 18:33 WBC RBC Hgb Hct MCV MCH MCHC RDW Plt Count MPV Neut % (Auto) Lymph % (Auto) Harmon % (Auto) Eos % (Auto) Baso % (Auto) Neut # (Auto) Lymph # (Auto) Harmon # (Auto) Eos # (Auto) Baso # (Auto) WBC Differential Differential Comment Sodium Potassium Chloride Carbon Dioxide Anion Gap BUN Creatinine Estimated GFR POC Glucose 154 H 104 Random Glucose Calcium Phosphorus Magnesium Total Bilirubin AST ALT Alkaline Phosphatase Total Protein Albumin Nasal Screen MRSA (PCR) Not detected 07/13/18 07/13/18 07/14/18 19:43 23:47 04:07 WBC 7.2 RBC 4.70 Hgb 15.5 Hct 46.2 MCV 98.4 MCH 33.0 MCHC 33.6 RDW 14.8 Plt Count 188 MPV 7.4 Neut % (Auto) 69.0 Lymph % (Auto) 21.4 Harmon % (Auto) 7.0 Eos % (Auto) 2.3 Baso % (Auto) 0.3 Neut # (Auto) 5.0 Lymph # (Auto) 1.5 Harmon # (Auto) 0.5 Eos # (Auto) 0.2 Baso # (Auto) 0.0 WBC Differential . Differential Comment Auto diff final Sodium Potassium 4.4 D Chloride Carbon Dioxide Anion Gap BUN Creatinine Estimated GFR POC Glucose 100 Random Glucose Calcium Phosphorus 4.0 D Magnesium Total Bilirubin AST ALT Alkaline Phosphatase Total Protein Albumin Nasal Screen MRSA (PCR) 07/14/18 04:07 WBC RBC Hgb Hct MCV MCH MCHC RDW Plt Count MPV Neut % (Auto) Lymph % (Auto) Harmon % (Auto) Eos % (Auto) Baso % (Auto) Neut # (Auto) Lymph # (Auto) Harmon # (Auto) Eos # (Auto) Baso # (Auto) WBC Differential Differential Comment Sodium 141 Potassium 3.7 Chloride 103 Carbon Dioxide 27.8 Anion Gap 10 BUN 12 Creatinine 0.99 Estimated GFR 75 L POC Glucose Random Glucose 110 H Calcium 8.9 Phosphorus 2.8 D Magnesium 1.8 Total Bilirubin 0.7 AST 16 ALT 19 Alkaline Phosphatase 135 H Total Protein 6.5 D Albumin 3.2 L Nasal Screen MRSA (PCR) Assessment and Plan - Plan Depression/anxiety Chronic pain syndrome Chronic benzodiazepine use Awake and alert xanax on hold Continue finasteride 4 mg 3 times daily pregabalin 200 mg twice daily for neuropathy Malfunctioning pacemaker Essential hypertension with transient hypotension Hyperlipidemia History of V. 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 Dr. Osei contacted by ED. Recommended dopamine for heart rate control overnight. Now off Dopamine 2D echo with EF 55% and mild LVH negative troponin Atorvastatin 80 mg daily/home again for dyslipidemia Metoprolol 50 mg twice daily on hold. Diabetes mellitus [id number] Gout Continue allopurinol 300 mg daily for gout Sliding scale insulin Accu-Cheks to maintain euglycemia every 6 hours aspart insulin spinal stenosis Elevated BMI Weight loss encouraged physical therapy evaluate and treat Hypokalemia/ Hypophosphatemia replaced. constipation laxatives as needed. Prophylaxis - -GI -On Pepcid -DVT SCD/resume Xarelto 20mg daily transfer to telemetry when ok with cardiology. Discharge Planning: when cleared by cardiology.
[2018-07-14] MEDS: Famotidine 20 MG Tablet PO SCH ×2 (08:02→21:38)
[2018-07-14] MEDS: Rivaroxaban 20 MG Tablet PO SCH (08:03)
[2018-07-14] MEDS: Senna/Docusate Sodium 8.6/50 MG Tablet PO SCH ×2 (08:03→21:36)
[2018-07-14] MEDS: Allopurinol 300 MG Tablet PO SCH (08:03)
[2018-07-14] MEDS: Morphine Sulfate Inj 2 MG/ML Vial IV.PUSH PRN ×3 (13:52→23:28)
--- NOTE | 2018-07-14 16:04 | P.PNCA ---
Subjective Interval history: No events overnight Heart rates stable Blood pressure now elevated Pain/anxiety meds held Medications and Allergies Active Medications: Active Medications Acetaminophen (Tylenol) 650 mg PO Q6H PRN PRN Reason: PAIN 1-10 AND/OR FEVER >101F Hydrocodone Bitart/Acetaminophen ([place] 5/325) 1 tab PO Q4H PRN PRN Reason: PAIN SCALE 1 TO 5 Last Admin: 07/14/18 12:00 Dose: 1 tab Al Hydroxide/Mg Hydroxide (Milk Of Tej Liq) 30 ml PO Q12H PRN PRN Reason: Mild Constipation Last Admin: 07/14/18 08:03 Dose: 30 ml Albuterol (Albuterol Neb (Prn)) 2.5 mg NEB Q2HR NEB PRN PRN Reason: SHORTNESS OF BREATH/WHEEZING Albuterol (Duoneb Neb (Sameer)) 1 ampul NEB Q4HR NEB SAMEER Last Admin: 07/14/18 15:05 Dose: 1 ampul Allopurinol (Zyloprim) 300 mg PO DAILY [facility] Last Admin: 07/14/18 08:03 Dose: 300 mg Atorvastatin Calcium (Lipitor) 80 mg PO DAILY [facility] Last Admin: 07/14/18 08:02 Dose: 80 mg Bisacodyl (Dulcolax Supp) 10 mg RECTAL DAILY PRN PRN Reason: SEVERE CONSITIPATION Chlorhexidine Gluconate (Chlorhexidine 2% Cloth) 3 pack TOPICAL DAILY@0400 [facility] Stop: 07/18/18 03:59 Last Admin: 07/14/18 03:56 Dose: 3 pack Chlorhexidine Gluconate (Chlorhexidine 2% Cloth) 3 pack TOPICAL DAILY@0400 PRN PRN Reason: Extra cloth needed Stop: 07/18/18 03:59 Dextrose (D50w Vial) 50 ml IV.PUSH UNSCH PRN PRN Reason: PER HYPOGLYCEMIA PROTOCOL Famotidine (Pepcid) 20 mg PO BID [facility] Last Admin: 07/14/18 08:02 Dose: 20 mg Glucagon (Glucagon Inj) 1 mg OTHER PRN PRN PRN Reason: for Hypoglycemia Protocol Dopamine HCl 800 mg/ Dextrose 500 mls @ 13.26 mls/hr IV.CONT TITRATE PRN; Protocol PRN Reason: PER PROTOCOL Last Titration: 07/13/18 19:00 Dose: Infused Magnesium Sulfate 4 gm/ Sodium (Chloride) 100 mls @ 50 mls/hr IV.SIG UNSCH PRN PRN Reason: For Magnesium 0.9 - 1.1 mg/dL Magnesium Sulfate 2 gm/ Sodium (Chloride) 100 mls @ 50 mls/hr IV.SIG UNSCH PRN PRN Reason: For Magnesium 1.2 - 1.6 mg/dL Potassium Chloride (Kcl 40 Meq Premix Inj) 40 meq in 100 mls @ 25 mls/hr IV.SIG Q2H PRN PRN Reason: For Potassium 2.8 - 3.2 mEq/L Potassium Chloride (Kcl 20 Meq Premix Inj) 20 meq in 100 mls @ 50 mls/hr IV.SIG Q2H PRN PRN Reason: For Potassium 3.3 - 3.5 mEq/L Potassium Chloride (Kcl 20 Meq Premix Inj) 20 meq in 100 mls @ 50 mls/hr IV.SIG Q2H PRN PRN Reason: For Potassium 2.8 - 3.2 mEq/L Potassium Phosphate 30 mmol/ (Sodium Chloride) 260 mls @ 42 mls/hr IV.SIG UNSCH PRN PRN Reason: SEE LABEL COMMENTS Last Infusion: 07/13/18 15:33 Dose: Infused Sodium Phosphate 30 mmol/ (Sodium Chloride) 260 mls @ 42 mls/hr IV.SIG UNSCH PRN PRN Reason: For Phosphorus < 2.5 mg/dL Potassium Chloride (Kcl 40 Meq Premix Inj) 40 meq in 100 mls @ 25 mls/hr IV.SIG UNSCH PRN PRN Reason: For Potassium 3.3 - 3.5 mEq/L Insulin Aspart (Novolog Insulin Correctional Sugar Inj) 0 unit SQ Q6HR [facility]; Protocol Last Admin: 07/14/18 12:50 Dose: Not Given Lactulose (Lactulose Liq) 30 ml PO DAILY PRN PRN Reason: SEVERE CONSITIPATION Latanoprost (Xalatan 0.005% Opth Drops) 1 drop EACH EYE [facility] Last Admin: 07/13/18 21:03 Dose: 1 drop Magnesium Oxide (Mag-Ox) 800 mg PO UNSCH PRN PRN Reason: For Magnesium 1.2 - 1.6 mg/dL Morphine Sulfate (Morphine Inj) 2 mg IV.PUSH Q2H PRN PRN Reason: PAIN SCALE 6 TO 10 Last Admin: 07/14/18 13:52 Dose: 2 mg Ondansetron HCl (Zofran Inj) 4 mg IV.PUSH Q6H PRN PRN Reason: NAUSEA OR VOMITING Potassium Bicarb/Potassium Chloride (K-Lyte Cl Eff) 50 meq PO UNSCH PRN PRN Reason: For Potassium 3.3 - 3.5 mEq/L Potassium Phosphate (K-Phos Original) 2,000 mg PO Q4H PRN PRN Reason: Phosphorus Less Than 2.5 mg/dL Potassium Phosphate (K-Phos Original) 2,000 mg PO UNSCH PRN PRN Reason: SEE LABEL COMMENTS Pregabalin (Lyrica) 200 mg PO BID [facility] Last Admin: 07/14/18 08:02 Dose: 200 mg Rivaroxaban (Xarelto) 20 mg PO DAILY [facility] Last Admin: 07/14/18 08:03 Dose: 20 mg Senna/Docusate Sodium (Loretta-Colace) 1 tab PO BID [facility] Last Admin: 07/14/18 08:03 Dose: 1 tab Sennosides (Senokot) 17.2 mg PO Q12H PRN PRN Reason: Moderate Constipation Sodium Chloride (Ns Flush) 2 ml IV.FLUSH PRN PRN PRN Reason: FLUSH AFTER USING IV ACCESS Last Admin: 07/12/18 17:38 Dose: 2 ml Sodium Chloride (Ns Flush) 2 ml IV.FLUSH BID [facility] Last Admin: 07/14/18 08:02 Dose: 2 ml Sodium Chloride (Ns Flush) 2 ml IV.FLUSH PRN PRN PRN Reason: FLUSH AFTER USING IV ACCESS Terbutaline Sulfate (Brethine Inj) 1 mg SQ ONCE PRN PRN Reason: Extravasation Last Admin: 07/12/18 17:38 Dose: 1 mg Allergies Allergy/AdvReac Type Severity Reaction Status Date / Time diatrizoate meglumine Allergy Severe RASH Verified 07/12/18 16:12 gadobenic acid Allergy Severe RASH Verified 07/12/18 16:12 gadodiamide Allergy Severe RASH Verified 07/12/18 16:10 gadoteridol Allergy Severe RASH Verified 07/12/18 16:10 Iodine and Iodide Containing Allergy Severe Hives, SOB Verified 07/12/18 16:10 Produc iodixanol Allergy Severe Hives Verified 07/12/18 16:10 iohexol Allergy Severe Hives Verified 07/12/18 16:10 Home Medications Medication Instructions Recorded Confirmed Type allopurinol 300 mg PO DAILY 07/12/18 07/12/18 History alprazolam 0.25 mg PO TID 07/12/18 07/12/18 History atorvastatin 80 mg PO DAILY 07/12/18 07/12/18 History dulaglutide [Trulicity] 1.5 mg SUBCUT QWEEK 07/12/18 07/12/18 History furosemide [Lasix] 40 mg PO BID 07/12/18 07/12/18 History glipizide 5 mg PO BID 07/12/18 07/12/18 History hydrocodone-acetaminophen 1 tab PO TID PRN 07/12/18 07/12/18 History metoprolol tartrate 50 mg PO BID 07/12/18 07/12/18 History potassium 99 mg PO DAILY 07/12/18 07/12/18 History pregabalin [Lyrica] 200 mg PO BID 07/12/18 07/12/18 History ranitidine HCl [Zantac] 150 mg PO BID 07/12/18 07/12/18 History rivaroxaban [Xarelto] 20 mg PO DAILY 07/12/18 07/12/18 History tizanidine 4 mg PO TID 07/12/18 07/12/18 History latanoprost [Xalatan] 1 drp OPHTHALMIC (EYE) QPM 07/13/18 07/13/18 History Physical Exam Vital signs: Vital Signs 07/13/18 18:00 07/13/18 19:00 07/13/18 20:00 Temperature 98.0 F Pulse Rate 80 80 80 Respiratory Rate 23 22 24 Blood Pressure 105/57 L 112/62 104/61 Pulse Oximetry 98 93 L 99 07/13/18 20:22 07/13/18 21:00 07/13/18 22:00 Temperature Pulse Rate 80 80 80 Respiratory Rate 23 20 29 H Blood Pressure 124/59 L 132/63 Pulse Oximetry 99 96 07/13/18 23:00 07/13/18 23:39 07/14/18 00:00 Temperature 98.3 F Pulse Rate 80 80 80 Respiratory Rate 22 20 22 Blood Pressure 131/69 130/62 Pulse Oximetry 100 99 07/14/18 01:14 EDT 07/14/18 02:00 07/14/18 03:00 Temperature Pulse Rate 80 80 80 Respiratory Rate 20 22 24 Blood Pressure 122/75 173/77 H 171/82 H Pulse Oximetry 96 97 97 07/14/18 03:01 07/14/18 04:00 07/14/18 05:00 Temperature 97.0 F L Pulse Rate 100 H 80 80 Respiratory Rate 18 24 22 Blood Pressure 170/79 H 172/82 H Pulse Oximetry 96 96 07/14/18 06:00 07/14/18 08:00 07/14/18 08:08 Temperature 98.9 F Pulse Rate 80 80 80 Respiratory Rate 22 12 14 Blood Pressure 182/87 H 176/112 H Pulse Oximetry 96 94 L 07/14/18 10:00 07/14/18 11:34 07/14/18 12:00 Temperature 98.7 F Pulse Rate 80 80 94 H Respiratory Rate 15 23 Blood Pressure 157/82 H Pulse Oximetry 95 07/14/18 14:00 07/14/18 15:00 07/14/18 15:05 Temperature Pulse Rate 98 H 94 H 88 Respiratory Rate 22 14 17 Blood Pressure 179/83 H 177/91 H Pulse Oximetry 95 94 L Intake & Output 07/13/18 07/14/18 07/14/18 19:59 06:59 18:59 Intake Total Output Total Balance Intake: IV Intropin Inj 800 MG In D5W Inj 480 ML @ 3 MCG/KG/MIN 13.26 mls /hr IV.CONT TITRATE PRN Rx#: [id number] Magnesium Sulfate Inj 2 GM In NS Inj 96 ML @ 50 mls/hr IV.SIG ONCE ONE Rx#:[id number] Potassium Phosphate Inj 30 MMOL In NS Inj 250 ML @ 42 mls/hr IV.SIG UNSCH PRN Rx#:[id number] Oral Output: Urine Other: Date of Last Bowel Movement 07/11/18 # Bowel Movements Narrative: GENERAL: Lethargic, NAD SKIN: Warm and dry. HEAD: Atraumatic. Normocephalic. EYES: Pupils equal and round. No scleral icterus. No injection or drainage. ENT: No nasal bleeding or discharge. Mucous membranes pink and moist. NECK: Trachea midline. No JVD. CARDIOVASCULAR: Regular rate and rhythm. RESPIRATORY: No accessory muscle use. Clear to auscultation. Breath sounds equal bilaterally. GASTROINTESTINAL: Abdomen soft, non-tender, nondistended. Hepatic and splenic margins not palpable. MUSCULOSKELETAL: 3-4+ pitting edema NEUROLOGICAL: Lethargic. No obvious cranial nerve deficits. Motor grossly within normal limits. Five out of 5 muscle strength in the arms and legs. Normal speech. PSYCHIATRIC: Appropriate mood and affect; insight and judgment normal. Results 07/14/18 04:07 07/14/18 04:07 Cardiac Enzymes 07/13/18 07/14/18 Range/Units 04:14 04:07 AST 21 16 (15-37) U/L Troponin I 0.03 (0.02-0.05) ng/mL Coagulation 07/13/18 Range/Units 04:14 PT 12.0 H (9.8-11.6) sec APTT 36.0 H (23.4-31.7) sec CBC 07/13/18 07/14/18 Range/Units 04:14 04:07 WBC 8.7 7.2 (4.0-11.0) th/mm3 RBC 5.04 4.70 (4.50-5.90) mil/mm3 Hgb 16.9 D 15.5 (13.0-17.0) gm/dL Hct 48.8 46.2 (39.0-51.0) % Plt Count 203 188 (150-450) th/mm3 Neut # (Auto) 6.4 5.0 (1.8-7.7) th/mm3 Lymph # (Auto) 1.5 1.5 (1.0-4.8) th/mm3 [place] # (Auto) 0.6 0.5 (0.0-0.9) th/mm3 Eos # (Auto) 0.1 0.2 (0.0-0.4) th/mm3 Baso # (Auto) 0.0 0.0 (0.0-0.2) th/mm3 Comprehensive Metabolic Panel 07/13/18 07/13/18 07/14/18 Range/Units 04:14 19:43 04:07 Sodium 141 141 (136-145) meq/L Potassium 3.4 L 4.4 D 3.7 (3.5-5.1) meq/L Chloride 102 103 (98-107) meq/L Carbon Dioxide 30.4 27.8 (21.0-32.0) meq/L BUN 10 12 (7-18) mg/dL Creatinine 0.93 0.99 (0.60-1.30) mg/dL Calcium 8.8 8.9 (8.5-10.1) mg/dL AST 21 16 (15-37) U/L ALT 24 19 (12-78) U/L Alkaline Phosphatase 155 H 135 H (45-117) U/L Total Protein 7.2 D 6.5 D (6.4-8.2) g/dL Albumin 3.6 D 3.2 L (3.4-5.0) g/dL Intake and Output 07/14/18 07/14/18 07/14/18 06:59 14:59 22:59 Intake Total Output Total Balance Intake: Oral Output: Urine Other: Date of Last Bowel Movement 07/11/18 # Bowel Movements - Imaging and Cardiology Imaging: Impressions Head CT 07/12/18 17:23 CONCLUSION: 1. No acute intracranial abnormalities. . Assessment and Plan - Assessment (1) Bradycardia Code(s): R00.1 - Bradycardia, unspecified Status: Acute (2) Acute hypotension Code(s): I95.9 - Hypotension, unspecified Status: Acute - Plan 1) Symptomatic bradycardia ICD is working, has a previous atrial lead turned off due to not capturing Was still pacing 40% on VVI at 40bpm Rate set at 80 bpm to help with perfusion Blood pressure now hypertensive Will decrease to VVI 60bpm 2) Hypotension Unknown cause other than meds Blood pressure better yseterday, then received Zanaflex and Xanax as scheduled and blood pressure 85/50 Blood pressure today hypertensive after meds held Echo showing no cause for hypotension Troponin negative 3) Will try to decrease pain/anxiety meds and see how he does 4) May need another atrial lead vs consideration of BiV if continues to pace at a high rate 5) Hold beta wendy therapy 6) Watch overnight If stable tomorrow then plan to DC and can follow up with Dr. Ramon for further considerations based on amount pacing from ventricle
[2018-07-14] MEDS: hydroCHLOROthiazide 25 MG Tablet PO SCH (18:56)
[2018-07-14] MEDS: Latanoprost 0.005% Opth Drops 2.5 ML Bottle EACH EYE SCH (21:39)
[2018-07-15] MEDS: Insulin NovoLOG Aspart Correctional Sugar Inj SQ SCH ×4 (00:14→17:46)
--- NOTE | 2018-07-15 00:34 | ECG ---
Date Performed: 07/12/2018 Time Performed: 16:38:12 PTAGE: 73 years EKG: ELECTRONIC VENTRICULAR PACEMAKER RBBB ON UTE BEATS ABNORMAL RHYTHM ECG PREVIOUS TRACING : 11/07/2016 11.27 Since the previous tracing, no significant change noted DOCTOR: Tobias Osei Interpretating Date/Time 07/15/2018 00:33:50
--- NOTE | 2018-07-15 00:35 | ECG ---
Date Performed: 07/12/2018 Time Performed: 16:04:53 PTAGE: 73 years EKG: ELECTRONIC VENTRICULAR PACEMAKER ABNORMAL RHYTHM ECG INTERPRETATION BASED ON A DEFAULT AGE OF 40 YEARS Compared to PREVIOUS TRACING , now with demand pacing DOCTOR: Tobias Osei Interpretating Date/Time 07/15/2018 00:35:17
[2018-07-15] MEDS: Chlorhexidine Gluconate 2% 1 Pack (2 Cloths) TOPICAL SCH (04:00)
[2018-07-15] MEDS: Allopurinol 300 MG Tablet PO SCH (08:16)
[2018-07-15] MEDS: hydroCHLOROthiazide 25 MG Tablet PO SCH (08:16)
[2018-07-15] MEDS: Senna/Docusate Sodium 8.6/50 MG Tablet PO SCH ×2 (08:16→20:28)
[2018-07-15] MEDS: Rivaroxaban 20 MG Tablet PO SCH (08:17)
[2018-07-15] MEDS: Famotidine 20 MG Tablet PO SCH ×2 (08:17→21:00)
[2018-07-15] MEDS ORDERED: amLODIPine 10 MG Tablet PO ONE (10:35)
[2018-07-15] MEDS: Morphine Sulfate Inj 2 MG/ML Vial IV.PUSH PRN (12:00)
[2018-07-15] MEDS ORDERED: Lisinopril 20 MG Tablet PO ONE (14:45)
--- NOTE | 2018-07-15 16:30 | P.PNIM ---
Subjective Interval history: Heart rate has improved off of beta-blockers. However, blood pressures are unstable. Blood pressures have been spiking above 200 mmHg systolic. Adjustments in blood pressures are in process to find an adequate treatment prior to discharge home. Physical Exam Vital signs: Vital Signs 07/14/18 17:00 07/14/18 18:00 07/14/18 19:00 Temperature Pulse Rate 71 113 H 104 H Respiratory Rate 26 H 30 H 29 H Blood Pressure 209/91 H 194/88 H 205/100 H Pulse Oximetry 93 L 89 L 96 07/14/18 19:01 07/14/18 19:53 07/14/18 20:00 Temperature Pulse Rate 96 H 86 70 Respiratory Rate 17 20 30 H Blood Pressure 209/93 H Pulse Oximetry 94 L 93 L 94 L 07/14/18 21:00 07/14/18 21:36 07/14/18 21:37 Temperature Pulse Rate 91 H Respiratory Rate 14 21 21 Blood Pressure 146/78 H Pulse Oximetry 93 L 07/14/18 22:00 07/14/18 23:00 07/15/18 00:00 Temperature 98.7 F Pulse Rate 72 86 85 Respiratory Rate 11 L 16 10 L Blood Pressure 197/112 H 188/88 H 174/84 H Pulse Oximetry 94 L 94 L 94 L 07/15/18 00:13 07/15/18 00:15 07/15/18 00:27 Temperature Pulse Rate 81 Respiratory Rate 22 21 12 Blood Pressure Pulse Oximetry 07/15/18 01:00 07/15/18 02:00 07/15/18 03:00 Temperature Pulse Rate 88 87 88 Respiratory Rate 20 8 L 11 L Blood Pressure 145/89 H 155/82 H 161/82 H Pulse Oximetry 94 L 92 L 91 L 07/15/18 04:00 07/15/18 05:00 07/15/18 06:00 Temperature 98.1 F Pulse Rate 83 99 H 82 Respiratory Rate 9 L 26 H 14 Blood Pressure 183/94 H 169/98 H 166/78 H Pulse Oximetry 93 L 93 L 92 L 07/15/18 08:00 07/15/18 10:00 07/15/18 12:00 Temperature Pulse Rate 94 H 93 H 90 Respiratory Rate Blood Pressure Pulse Oximetry 96 07/15/18 14:00 Temperature Pulse Rate 83 Respiratory Rate Blood Pressure Pulse Oximetry Intake & Output 07/14/18 07/15/18 07/15/18 18:59 06:59 18:59 Intake Total 300 / 300 Output Total 900 / 900 Balance -600 / -600 Weight 137.5 kg Intake: Oral 300 / 300 Output: Urine 900 / 900 Other: Date of Last Bowel Movement 07/11/18 07/11/18 07/11/18 # Bowel Movements 0 Narrative: GENERAL: NAD, A&Ox3 HEAD: Normocephalic. NECK: Supple, trachea midline. No lymphadenopathy. EYES: No scleral icterus. No injection or drainage. CARDIOVASCULAR: Regular rate and rhythm without murmurs, gallops, or rubs. RESPIRATORY: Breath sounds equal bilaterally. No accessory muscle use. GASTROINTESTINAL: Abdomen soft, non-tender, nondistended. MUSCULOSKELETAL: No cyanosis, or edema. SKIN: Warm and dry. NEURO: No focal neurological deficits. Results - Labs CBC & Chem 7: 07/14/18 04:07 07/14/18 04:07 Laboratory Results - last 24 hr 07/14/18 07/15/18 17:33 00:08 POC Glucose 126 H 122 H Assessment and Plan - Plan 73-year-old male admitted secondary to symptomatic bradycardia Symptomatic bradycardia Improved with cessation of beta-wendy Cardiology following This condition appears to be resolving Pacemaker adjusted Uncontrolled hypertension Hypertensive urgency Beta-blockers have been discontinued as above Amlodipine started Lisinopril added As needed clonidine As needed enalapril IV Continue to follow blood pressures and adjust until controlled Discharge pending improved blood pressure control Depression/anxiety Chronic pain syndrome Chronic benzodiazepine use Continue finasteride Continue gabapentin pacemaker Hyperlipidemia History of V. tach status post AICD 2017 Congestive heart failure ejection fraction 55% 2015 with moderate to severe pulmonary retention Pacemaker adjusted during this visit Cardiology following Metoprolol discontinued Atorvastatin continued Diabetes mellitus type 2 Follow blood sugars Insulin sliding scale Diabetic diet Gout Continue allopurinol Chronic spinal stenosis Elevated BMI Weight loss recommended Continue PT Weight loss encouraged physical therapy evaluate and treat Hypokalemia/ Hypophosphatemia Replace and monitor for recurrence constipation laxatives as needed. DVT prophylaxis Xarelto 20mg daily
[2018-07-15] MEDS: Latanoprost 0.005% Opth Drops 2.5 ML Bottle EACH EYE SCH (20:29)
--- NOTE | 2018-07-15 23:21 | P.PNCA ---
Subjective Interval history: No events overnight Heart rates stable in the 80s Blood pressure elevated Medications and Allergies Active Medications: Active Medications Acetaminophen (Tylenol) 650 mg PO Q6H PRN PRN Reason: PAIN 1-10 AND/OR FEVER >101F Hydrocodone Bitart/Acetaminophen (Tunas 5/325) 1 tab PO Q4H PRN PRN Reason: PAIN SCALE 1 TO 5 Last Admin: 07/15/18 20:31 Dose: 1 tab Al Hydroxide/Mg Hydroxide (Milk Of Tej Strong) 30 ml PO Q12H PRN PRN Reason: Mild Constipation Last Admin: 07/14/18 08:03 Dose: 30 ml Albuterol (Albuterol Neb (Prn)) 2.5 mg NEB Q2HR NEB PRN PRN Reason: SHORTNESS OF BREATH/WHEEZING Albuterol (Duoneb Neb (Sameer)) 1 ampul NEB Q4HR NEB SAMEER Last Admin: 07/15/18 15:24 Dose: Not Given Allopurinol (Zyloprim) 300 mg PO DAILY SAMEER Last Admin: 07/15/18 08:16 Dose: 300 mg Amlodipine Besylate (Norvasc) 10 mg PO DAILY SAMEER Atorvastatin Calcium (Lipitor) 80 mg PO DAILY [facility] Last Admin: 07/15/18 08:16 Dose: 80 mg Bisacodyl (Dulcolax Supp) 10 mg RECTAL DAILY PRN PRN Reason: SEVERE CONSITIPATION Chlorhexidine Gluconate (Chlorhexidine 2% Cloth) 3 pack TOPICAL DAILY@0400 SAMEER Stop: 07/18/18 03:59 Last Admin: 07/15/18 04:00 Dose: 3 pack Chlorhexidine Gluconate (Chlorhexidine 2% Cloth) 3 pack TOPICAL DAILY@0400 PRN PRN Reason: Extra cloth needed Stop: 07/18/18 03:59 Clonidine HCl (Catapres) 0.1 mg PO Q6H PRN PRN Reason: SYS BP GREATER THAN 160 MMHG Last Admin: 07/15/18 20:28 Dose: 0.1 mg Dextrose (D50w Vial) 50 ml IV.PUSH UNSCH PRN PRN Reason: PER HYPOGLYCEMIA PROTOCOL Enalaprilat (Vasotec Inj) 1.25 mg IV.PUSH Q6H PRN PRN Reason: SBP>160, DBP>90 Last Admin: 07/15/18 18:32 Dose: 1.25 mg Famotidine (Pepcid) 20 mg PO BID [facility] Last Admin: 07/15/18 08:17 Dose: 20 mg Glucagon (Glucagon Inj) 1 mg OTHER PRN PRN PRN Reason: for Hypoglycemia Protocol Hydrochlorothiazide (Hydrodiuril) 25 mg PO DAILY [facility] Last Admin: 07/15/18 08:16 Dose: 25 mg Dopamine HCl 800 mg/ Dextrose 500 mls @ 13.26 mls/hr IV.CONT TITRATE PRN; Protocol PRN Reason: PER PROTOCOL Last Titration: 07/13/18 19:00 Dose: Infused Magnesium Sulfate 4 gm/ Sodium (Chloride) 100 mls @ 50 mls/hr IV.SIG UNSCH PRN PRN Reason: For Magnesium 0.9 - 1.1 mg/dL Magnesium Sulfate 2 gm/ Sodium (Chloride) 100 mls @ 50 mls/hr IV.SIG UNSCH PRN PRN Reason: For Magnesium 1.2 - 1.6 mg/dL Potassium Chloride (Kcl 40 Meq Premix Inj) 40 meq in 100 mls @ 25 mls/hr IV.SIG Q2H PRN PRN Reason: For Potassium 2.8 - 3.2 mEq/L Potassium Chloride (Kcl 20 Meq Premix Inj) 20 meq in 100 mls @ 50 mls/hr IV.SIG Q2H PRN PRN Reason: For Potassium 3.3 - 3.5 mEq/L Potassium Chloride (Kcl 20 Meq Premix Inj) 20 meq in 100 mls @ 50 mls/hr IV.SIG Q2H PRN PRN Reason: For Potassium 2.8 - 3.2 mEq/L Potassium Phosphate 30 mmol/ (Sodium Chloride) 260 mls @ 42 mls/hr IV.SIG UNSCH PRN PRN Reason: SEE LABEL COMMENTS Last Infusion: 07/13/18 15:33 Dose: Infused Sodium Phosphate 30 mmol/ (Sodium Chloride) 260 mls @ 42 mls/hr IV.SIG UNSCH PRN PRN Reason: For Phosphorus < 2.5 mg/dL Potassium Chloride (Kcl 40 Meq Premix Inj) 40 meq in 100 mls @ 25 mls/hr IV.SIG UNSCH PRN PRN Reason: For Potassium 3.3 - 3.5 mEq/L Insulin Aspart (Novolog Insulin Correctional Sugar Inj) 0 unit SQ Q6HR [facility]; Protocol Last Admin: 07/15/18 17:46 Dose: Not Given Lactulose (Lactulose Liq) 30 ml PO DAILY PRN PRN Reason: SEVERE CONSITIPATION Last Admin: 07/15/18 08:18 Dose: 30 ml Latanoprost (Xalatan 0.005% Opth Drops) 1 drop EACH EYE HS [facility] Last Admin: 07/15/18 20:29 Dose: 1 drop Lisinopril (Prinivil) 40 mg PO DAILY [facility] Magnesium Oxide (Mag-Ox) 800 mg PO UNSCH PRN PRN Reason: For Magnesium 1.2 - 1.6 mg/dL Morphine Sulfate (Morphine Inj) 2 mg IV.PUSH Q2H PRN PRN Reason: PAIN SCALE 6 TO 10 Last Admin: 07/15/18 12:00 Dose: 2 mg Ondansetron HCl (Zofran Inj) 4 mg IV.PUSH Q6H PRN PRN Reason: NAUSEA OR VOMITING Potassium Bicarb/Potassium Chloride (K-Lyte Cl Eff) 50 meq PO UNSCH PRN PRN Reason: For Potassium 3.3 - 3.5 mEq/L Potassium Phosphate (K-Phos Original) 2,000 mg PO Q4H PRN PRN Reason: Phosphorus Less Than 2.5 mg/dL Potassium Phosphate (K-Phos Original) 2,000 mg PO UNSCH PRN PRN Reason: SEE LABEL COMMENTS Pregabalin (Lyrica) 200 mg PO BID [facility] Last Admin: 07/15/18 20:28 Dose: 200 mg Rivaroxaban (Xarelto) 20 mg PO DAILY [facility] Last Admin: 07/15/18 08:17 Dose: 20 mg Senna/Docusate Sodium (Loretta-Colace) 1 tab PO BID [facility] Last Admin: 07/15/18 20:28 Dose: 1 tab Sennosides (Senokot) 17.2 mg PO Q12H PRN PRN Reason: Moderate Constipation Sodium Chloride (Ns Flush) 2 ml IV.FLUSH PRN PRN PRN Reason: FLUSH AFTER USING IV ACCESS Last Admin: 07/12/18 17:38 Dose: 2 ml Sodium Chloride (Ns Flush) 2 ml IV.FLUSH BID [facility] Last Admin: 07/15/18 20:28 Dose: 2 ml Sodium Chloride (Ns Flush) 2 ml IV.FLUSH PRN PRN PRN Reason: FLUSH AFTER USING IV ACCESS Terbutaline Sulfate (Brethine Inj) 1 mg SQ ONCE PRN PRN Reason: Extravasation Last Admin: 07/12/18 17:38 Dose: 1 mg Allergies Allergy/AdvReac Type Severity Reaction Status Date / Time diatrizoate meglumine Allergy Severe RASH Verified 07/12/18 16:12 gadobenic acid Allergy Severe RASH Verified 07/12/18 16:12 gadodiamide Allergy Severe RASH Verified 07/12/18 16:10 gadoteridol Allergy Severe RASH Verified 07/12/18 16:10 Iodine and Iodide Containing Allergy Severe Hives, SOB Verified 07/12/18 16:10 Produc iodixanol Allergy Severe Hives Verified 07/12/18 16:10 iohexol Allergy Severe Hives Verified 07/12/18 16:10 Home Medications Medication Instructions Recorded Confirmed Type allopurinol 300 mg PO DAILY 07/12/18 07/12/18 History alprazolam 0.25 mg PO TID 07/12/18 07/12/18 History atorvastatin 80 mg PO DAILY 07/12/18 07/12/18 History dulaglutide [Trulicity] 1.5 mg SUBCUT QWEEK 07/12/18 07/12/18 History furosemide [Lasix] 40 mg PO BID 07/12/18 07/12/18 History glipizide 5 mg PO BID 07/12/18 07/12/18 History hydrocodone-acetaminophen 1 tab PO TID PRN 07/12/18 07/12/18 History metoprolol tartrate 50 mg PO BID 07/12/18 07/12/18 History potassium 99 mg PO DAILY 07/12/18 07/12/18 History pregabalin [Lyrica] 200 mg PO BID 07/12/18 07/12/18 History ranitidine HCl [Zantac] 150 mg PO BID 07/12/18 07/12/18 History rivaroxaban [Xarelto] 20 mg PO DAILY 07/12/18 07/12/18 History tizanidine 4 mg PO TID 07/12/18 07/12/18 History latanoprost [Xalatan] 1 drp OPHTHALMIC (EYE) QPM 07/13/18 07/13/18 History Physical Exam Vital signs: Vital Signs 07/15/18 00:00 07/15/18 00:13 07/15/18 00:15 Temperature 98.7 F Pulse Rate 85 Respiratory Rate 10 L 22 21 Blood Pressure 174/84 H Pulse Oximetry 94 L 07/15/18 00:27 07/15/18 01:00 07/15/18 02:00 Temperature Pulse Rate 81 88 87 Respiratory Rate 12 20 8 L Blood Pressure 145/89 H 155/82 H Pulse Oximetry 94 L 92 L 07/15/18 03:00 07/15/18 04:00 07/15/18 05:00 Temperature 98.1 F Pulse Rate 88 83 99 H Respiratory Rate 11 L 9 L 26 H Blood Pressure 161/82 H 183/94 H 169/98 H Pulse Oximetry 91 L 93 L 93 L 07/15/18 06:00 07/15/18 08:00 07/15/18 10:00 Temperature 99.0 F Pulse Rate 82 89 93 H Respiratory Rate 14 15 Blood Pressure 166/78 H 168/86 H Pulse Oximetry 92 L 92 L 07/15/18 12:00 07/15/18 14:00 07/15/18 16:00 Temperature 98.9 F 99.0 F Pulse Rate 89 83 89 Respiratory Rate 14 17 Blood Pressure 167/87 H 203/108 H Pulse Oximetry 94 L 93 L 07/15/18 18:00 07/15/18 20:00 07/15/18 22:00 Temperature 97.5 F L Pulse Rate 93 H 116 H 86 Respiratory Rate 20 Blood Pressure 144/108 H Pulse Oximetry 95 Intake & Output 07/15/18 07/15/18 07/16/18 06:59 18:59 06:59 Intake Total 300 / 300 Output Total 900 / 900 Balance -600 / -600 Weight 137.5 kg Intake: Oral 300 / 300 Output: Urine 900 / 900 Other: Date of Last Bowel Movement 07/11/18 07/11/18 07/11/18 # Bowel Movements 0 Narrative: GENERAL: NAD, A&Ox3 HEAD: Normocephalic. NECK: Supple, trachea midline. No lymphadenopathy. EYES: No scleral icterus. No injection or drainage. CARDIOVASCULAR: Regular rate and rhythm without murmurs, gallops, or rubs. RESPIRATORY: Breath sounds equal bilaterally. No accessory muscle use. GASTROINTESTINAL: Abdomen soft, non-tender, nondistended. MUSCULOSKELETAL: No cyanosis, or edema. SKIN: Warm and dry. NEURO: No focal neurological deficits. Results 07/14/18 04:07 07/14/18 04:07 Cardiac Enzymes 07/14/18 Range/Units 04:07 AST 16 (15-37) U/L CBC 07/14/18 Range/Units 04:07 WBC 7.2 (4.0-11.0) th/mm3 RBC 4.70 (4.50-5.90) mil/mm3 Hgb 15.5 (13.0-17.0) gm/dL Hct 46.2 (39.0-51.0) % Plt Count 188 (150-450) th/mm3 Neut # (Auto) 5.0 (1.8-7.7) th/mm3 Lymph # (Auto) 1.5 (1.0-4.8) th/mm3 [place] # (Auto) 0.5 (0.0-0.9) th/mm3 Eos # (Auto) 0.2 (0.0-0.4) th/mm3 Baso # (Auto) 0.0 (0.0-0.2) th/mm3 Comprehensive Metabolic Panel 07/14/18 Range/Units 04:07 Sodium 141 (136-145) meq/L Potassium 3.7 (3.5-5.1) meq/L Chloride 103 (98-107) meq/L Carbon Dioxide 27.8 (21.0-32.0) meq/L BUN 12 (7-18) mg/dL Creatinine 0.99 (0.60-1.30) mg/dL Calcium 8.9 (8.5-10.1) mg/dL AST 16 (15-37) U/L ALT 19 (12-78) U/L Alkaline Phosphatase 135 H (45-117) U/L Total Protein 6.5 D (6.4-8.2) g/dL Albumin 3.2 L (3.4-5.0) g/dL Intake and Output 07/15/18 07/15/18 07/16/18 14:59 22:59 06:59 Other: Date of Last Bowel Movement 07/11/18 07/11/18 Assessment and Plan - Assessment (1) Bradycardia Code(s): R00.1 - Bradycardia, unspecified Status: Acute (2) Acute hypotension Code(s): I95.9 - Hypotension, unspecified Status: Acute - Plan 1) Symptomatic bradycardia ICD is working, has a previous atrial lead turned off due to not capturing Was still pacing 40% on VVI at 40bpm Rate set at 80 bpm to help with perfusion Blood pressure now hypertensive Now VVI 60bpm 2) Hypotension Unknown cause other than meds Blood pressure better, then received Zanaflex and Xanax as scheduled and blood pressure 85/50 Blood pressure today hypertensive after meds held Echo showing no cause for hypotension Troponin negative 3) Will try to decrease pain/anxiety meds and see how he does 4) May need another atrial lead vs consideration of BiV if continues to pace at a high rate 5) Hold beta wendy therapy 6) HTN now Agree with Norvasc/FORD-I
[2018-07-16] MEDS: Chlorhexidine Gluconate 2% 1 Pack (2 Cloths) TOPICAL SCH (04:08)
[2018-07-16] MEDS: Insulin NovoLOG Aspart Correctional Sugar Inj SQ SCH ×2 (06:07)
[2018-07-16] MEDS: hydroCHLOROthiazide 25 MG Tablet PO SCH (08:21)
[2018-07-16] MEDS: Famotidine 20 MG Tablet PO SCH (08:22)
[2018-07-16] MEDS: Senna/Docusate Sodium 8.6/50 MG Tablet PO SCH (08:22)
[2018-07-16] MEDS: Allopurinol 300 MG Tablet PO SCH (08:23)
[2018-07-16] MEDS: Rivaroxaban 20 MG Tablet PO SCH (08:23)
[2018-07-16] MEDS ORDERED: amLODIPine 10 MG Tablet PO SCH (09:00)
[2018-07-16] MEDS ORDERED: Lisinopril 20 MG Tablet PO SCH (09:00)
--- NOTE | 2018-07-16 11:20 | P.DS ---
Date of admission: 07/12/18 17:53 Primary care physician: UNKNOWN Brief History from admission: This is a 73-year-old male. Date of admission 07/12/2008. Past medical history includes congestive heart failure ejection fraction 50%, pulmonary retention with a, chronic kidney disease stage II, hypertension hyperlipidemia diabetes mellitus, depression, spinal stenosis history of V. tach status post AICD 2017. Patient presents to [facility] ED from physician's office for pain management with symptomatic bradycardia/syncope. Per report, he is noted to have a heart rate in the 40s with a systolic blood pressure in the 60s. Initially, patient did not want to come the ED was monitored but still remained hypotensive and bradycardic. EVAC was called, patient received 1 mg atropine which improved heart rate and blood pressure. Patient received glucagon for possible beta-wendy toxicity. Patient was externally paced. Cardiology was consulted Dr. Osei who recommend interrogation of pacemaker and start on low-dose dopamine. Pacemaker is currently malfunctioning.Patient is aware currently on 3 mcg/kg/min of dopamine and perfusing well. DS: Medications - Discharge Medications Prescriptions: amlodipine [Norvasc] 10 mg PO DAILY #30 tab lisinopril 40 mg PO DAILY #30 tab DS: Summary Hospital Course: Mr. Merino is a 73-year-old male. He was admitted secondary to symptomatic bradycardia. With cessation of metoprolol he had resolution of his bradycardia. However, his blood pressure significantly increased. He was started on amlodipine yesterday which did not seem to be enough. Lisinopril is added and continued through this morning. Blood pressures have improved overnight and are stable enough this morning for discharge to home today. Patient medically stable and cleared for discharge home today with outpatient follow-up with cardiology. - Time Spent with Patient Total time spent providing and/or coordinating discharge services: Less than 30 minutes - Quality: VTE Deep Vein Thrombosis/Pulmonary Embolism Present on Admission: No Exam Vital signs: Vital Signs 07/15/18 12:00 07/15/18 14:00 07/15/18 16:00 Temperature 98.9 F 99.0 F Pulse Rate 89 83 89 Respiratory Rate 14 17 Blood Pressure 167/87 H 203/108 H Pulse Oximetry 94 L 93 L 07/15/18 18:00 07/15/18 20:00 07/15/18 22:00 Temperature 97.5 F L Pulse Rate 93 H 116 H 86 Respiratory Rate 20 Blood Pressure 144/108 H Pulse Oximetry 95 07/16/18 00:00 07/16/18 02:00 07/16/18 04:00 Temperature 98.0 F 98.2 F Pulse Rate 93 H 65 83 Respiratory Rate 20 20 Blood Pressure 131/75 123/67 Pulse Oximetry 95 95 07/16/18 06:00 07/16/18 08:00 07/16/18 08:23 Temperature Pulse Rate 60 76 Respiratory Rate Blood Pressure Pulse Oximetry 94 L Intake & Output 07/15/18 07/16/18 07/16/18 18:59 06:59 18:59 Intake Total 480 / 480 Output Total 1700 / 1700 Balance -1220 / -1220 Weight 137 kg Intake: Oral 480 / 480 Output: Urine 1700 / 1700 Other: Date of Last Bowel Movement 07/11/18 07/11/18 07/11/18 # Bowel Movements 0 Results Procedures completed during hospitalization: None Labs on day of discharge: Labs from last 24 hours 07/16/18 07/16/18 07/15/18 06:04 00:04 17:07 POC Glucose 129 H 114 H 144 H - Impressions ITS Impressions Chest X-Ray 07/12/18 16:07 CONCLUSION: Left subclavian bipolar pacer. Some prominence of lung markings due to poor inspiratory effort Head CT 07/12/18 17:23 CONCLUSION: 1. No acute intracranial abnormalities. . Discharge Plan - Discharge Disposition Patient Disposition: Discharge Home - Discharge Condition Condition: Stable - Discharge Order Discharge Orders: Discharge Order (Routine); Ordered 07/16/18 Ordered By: Boris Oconnell - Discharge Details Anticipated Discharge Date: 07/15/18 - Physicians Team Primary Care Provider: UNKNOWN, Attending Provider: Boris Oconnell Other Providers: Tobias Osei DO
== END 2018-07-16 10:20 | disposition home or self-care (01) ==
LOC: NEPE 15:56 → NEDA 17:53 → HIMC 20:40
PROVIDERS: ADMIT Hospitalist; ATTEND Hospitalist